=== PATIENT | female | born 1935 | race Caucasian/White ===

== ENCOUNTER 2017-05-28 17:42 | Inpatient (IN) | payer OTHER, MEDICARE ==
[~2017-05-28] VITALS: Ht 157.5 cm; Wt 51.5 kg
[2017-05-28] VITALS (16 sets, daily range): BP systolic 81–128; BP diastolic 55–82; PULSE 79–167; RESP 15–20; TEMP 98.8–100.4; O2SAT 97–100
[~2017-05-28 17:42] MED LIST: ATEN1TAB73 PO; BUFF325T PO; DIPH1TAB36 PO; ESTROGENS METHYLTEST PO; LORA-392 PO; PRAV10 PO; PRIS50TA PO; RISP0.5T2 PO; TAB-TAB PO
[2017-05-28] MEDS ORDERED: SODIUM CHLOR 0.9% 1000 ML INJ 1,000 ML IV ONE ×2 (18:00→19:00)
[2017-05-28] MEDS ORDERED: ACETAMINOPHEN 325 MG TAB PO ONE (18:00)
--- NOTE | 2017-05-28 18:36 | PD ---
HPI Chief Complaint: Altered Mental Status Time Seen by Provider: 17:49 Travel History International Travel<30 days: No Contact w/Intl Traveler<30days: No Traveled to known affect area: No History of Present Illness HPI Is an 82-year-old woman who presents to the emergency department brought in from [facility] in [place] for acute altered mental status. EMS reports the patient went down for a nap after lunch. She woke up she was overly confused, with nonsensical speech, with a heart rate in the 190s. Therefore that she was in A. fib which initially they reported was new for her however speaking with the son is sounds like this is been there since February. She received diltiazem with fire prior to EMS arrival [facility] arrival. Heart rate came down to 170s. She was found to have a fever of 101.3. [facility] gave her IV fluids, with some further improvement in her heart rate. There is facility reported that she otherwise had been feeling generally well prior to lunch time. History Past Medical History Narrative Medical Hyperlipidemia Depression Hypertension Stroke Right hip replacement Muscle weakness Urinary frequency Dyspepsia Osteoarthritis Menopausal: Yes : 2 Para: 2 Social History Alcohol Use: Yes (OCCAS.) Tobacco Use: Yes (QUIT LONG AGO) Allergies-Medications (Allergen,Severity, Reaction): Coded Allergies: diatrizoate meglumine (Unverified Allergy, Severe, Anaphylaxis, 05/10/17) States that she had the result while having a test completed on her kidneys. Was given Epi because throat became swollen. gadobenic acid (Unverified Allergy, Severe, Anaphylaxis, 05/10/17) States that she had the result while having a test completed on her kidneys. Was given Epi because throat became swollen. gadodiamide (Unverified Allergy, Severe, Anaphylaxis, 05/10/17) States that she had the result while having a test completed on her kidneys. Was given Epi because throat became swollen. gadoteridol (Unverified Allergy, Severe, Anaphylaxis, 05/10/17) States that she had the result while having a test completed on her kidneys. Was given Epi because throat became swollen. iodixanol (Unverified Allergy, Severe, Anaphylaxis, 05/10/17) States that she had the result while having a test completed on her kidneys. Was given Epi because throat became swollen. iohexol (Unverified Allergy, Severe, Anaphylaxis, 05/10/17) States that she had the result while having a test completed on her kidneys. Was given Epi because throat became swollen. Reported Meds & Prescriptions Reported Meds & Active Scripts Active Reported Bufferin (Aspirin Buffered) 325 Mg Tab 325 Mg PO EVERY OTHER DAY Multivitamin (Multivitamins) 1 Tab Tab 1 Tab PO DAILY Pristiq (Desvenlafaxine Succinate) 50 Mg Mihcelle 50 Mg PO DAILY Tylenol Pm (Acetaminophen/Diphenhydramine HCl) Tab 2 Tab PO HS Pravachol (Pravastatin Sodium) 10 Mg Tab 10 Mg PO HS Risperdal (Risperidone) 0.5 Mg Tab 0.5 Mg PO BID 07/28 tab at hs Ativan (Lorazepam) 0.5 Mg Tab 0.5 Mg PO TID [estrogens methyltest] 0.625 Mg PO QOD Tenormin (Atenolol) 25 Mg Tab 25 Mg PO DAILY Review of Systems Except as stated in HPI: all other systems reviewed are Neg Physical Exam Narrative GENERAL: Elderly 82-year-old woman pleasant, little bit confused. SKIN: Focused skin assessment warm/dry. HEAD: Atraumatic. Normocephalic. EYES: Pupils equal and round. No scleral icterus. No injection or drainage. ENT: No nasal bleeding or discharge. Mucous membranes pink and moist. NECK: Trachea midline. No JVD. CARDIOVASCULAR: Regular rate and rhythm. No murmur appreciated. RESPIRATORY: No accessory muscle use. Clear to auscultation. Breath sounds equal bilaterally. GASTROINTESTINAL: Abdomen soft, non-tender, nondistended. Hepatic and splenic margins not palpable. MUSCULOSKELETAL: No obvious deformities. No edema. NEUROLOGICAL: Awake and alert. Minimal confusion, able to read my name badge and carry on a normal conversation. No obvious cranial nerve deficits. Motor grossly within normal limits. Normal speech. Data Data Last Documented VS Vital Signs Date Time Temp Pulse Resp B/P (MAP) Pulse Ox O2 Delivery O2 Flow Rate FiO2 05/28/17 17:59 100.4 167 20 126/81 (96) 100 Orders Orders Electrocardiogram (05/28/17 17:49) Complete Blood Count With Diff (05/28/17 17:49) Comprehensive Metabolic Panel (05/28/17 17:49) Lactic Acid Sepsis Protocol (05/28/17 17:49) Magnesium (Mg) (05/28/17 17:49) Lipase (05/28/17 17:49) Troponin I (05/28/17 17:49) Urinalysis - C+S If Indicated (05/28/17 17:49) Influenzae A/B Antigen (05/28/17 17:49) Blood Culture (05/28/17 17:49) Chest, Single Ap (05/28/17 17:49) Blood Glucose (05/28/17 17:49) Ecg Monitoring (05/28/17 17:49) Iv Access Insert/Monitor (05/28/17 17:49) Oximetry (05/28/17 17:49) Oxygen Administration (05/28/17 17:49) Acetaminophen (Tylenol) (05/28/17 18:00) Sodium Chlor 0.9% 1000 Ml Inj (Ns 1000 M (05/28/17 18:00) MDM Medical Decision Making Medical Screen Exam Complete: Yes Emergency Medical Condition: Yes Differential Diagnosis Sepsis, A. fib RVR, infection, arrhythmia, dehydration, other Narrative Course Medical decision making INITIAL: Is an 82 year-old man presents to the emergency department with confusion, tachycardia, and fever. Suspect UTI. We'll check labs, urine, IV fluids. She received a liter 2 L with EMS also. Clarence Harper MD May 28, 2017 18:36
[2017-05-28 18:42] LABS: AUTOMATED NEUTROPHIL # 8.6 TH/MM3 (1.8-7.7); BASOPHIL % 0.3 % (0.0-2.0); EOSINOPHIL # 0.1 TH/MM3 (0-0.4); EOSINOPHIL % 0.5 % (0.0-4.0); HEMATOCRIT 34.7 % (35.0-46.0); HEMO FLAGS DIFF FINAL; LYMPH % 8.7 % (9.0-44.0); MEAN CELL VOLUME 85.9 FL (80.0-100.0); MEAN CORPUSCULAR HEMOGLOBIN 27.9 PG (27.0-34.0); MEAN CORPUSCULAR HGB CONC 32.5 % (32.0-36.0); MONO % 12.8 % (0.0-8.0); NEUT % 77.7 % (16.0-70.0); PLATELET COUNT 284 TH/MM3 (150-450); RED BLOOD COUNT 4.04 MIL/MM3 (4.00-5.30); WHITE BLOOD COUNT 11.1 TH/MM3 (4.0-11.0)
[2017-05-28 18:52] LABS: BLOOD, URINE NEG (NEG); GLUCOSE,URINE NEG (NEG); KETONE, URINE NEG (NEG); NITRITE,URINE NEG (NEG); URINE COLOR LIGHT-YELLOW (YELLW/STRAW)
[2017-05-28 18:54] LABS: COMMENT (UR) CATH-CULT NOT IND; CULTURE IF INDICATED CATH CULTURE NOT IND
[2017-05-28 18:57] LABS: ANION GAP 9 MEQ/L (5-15); AST (GOT) 17 U/L (15-37); BICARBONATE 22.7 MEQ/L (21.0-32.0); BLOOD UREA NITROGEN 13 MG/DL (7-18); CHLORIDE 104 MEQ/L (98-107); GLOMERULAR FILTRATION RATE 121 ML/MIN (>89); MAGNESIUM 1.7 MG/DL (1.5-2.5); POTASSIUM 3.5 MEQ/L (3.5-5.1); SODIUM (NA) 136 MEQ/L (136-145)
[2017-05-28 18:58] LABS: ALT (GPT) 16 U/L (10-53)
[2017-05-28] MEDS ORDERED: DILTIAZEM INJ 125 MG in SODIUM CHLORIDE 0.9% INJ 100 ML IV PRN (19:00)
[2017-05-28] MEDS ORDERED: DILTIAZEM HCL 25 MG/5 ML VIAL IV PUSH ONE (19:00)
--- NOTE | 2017-05-28 19:01 | RADRPT ---
EXAM DATE/TIME: 05/28/2017 18:24 [facility] COMPARISON: No previous studies available for comparison. INDICATIONS : Fever. MEDICAL HISTORY : Hypercholesterolemia. Hypertension SURGICAL HISTORY : Hysterectomy. ENCOUNTER: Initial ACUITY: 1 day PAIN SCORE: Non-responsive. LOCATION: Bilateral chest FINDINGS: Minimal parenchymal changes are present in the left base. The right lung is clear. The heart and pul monary vascularity are normal. The portion of the bony skeleton visualized is unremarkable. CONCLUSION: Minimal parenchymal changes left base. Johnnie Cazares MD FACR on May 28, 2017 at 18:59 Board Certified Radiologist. This report was verified electronically.
[2017-05-28 19:02] LABS: ALKALINE PHOSPHATASE 76 U/L (45-117); TOTAL BILIRUBIN ADULT 0.4 MG/DL (0.2-1.0)
[2017-05-28] MEDS ORDERED: VANCOMYCIN INJ 1,000 MG in SODIUM CHLOR 0.9% 250 ML INJ 250 ML IV ONE (19:15)
[2017-05-28] MEDS ORDERED: CEFEPIME INJ 2,000 MG in SODIUM CHLORIDE 0.9% INJ 100 ML IV ONE (19:15)
[2017-05-28] MEDS ORDERED: MILKSUS PO (19:17)
[2017-05-28] MEDS ORDERED: PRIL20TA2 PO (19:17)
[2017-05-28] MEDS ORDERED: ASPI1TAB91 PO (19:17)
[2017-05-28] MEDS ORDERED: ALPR.25 PO (19:17)
[2017-05-28] MEDS ORDERED: MIRA3350 PO (19:17)
[2017-05-28] MEDS ORDERED: PERI8.6T PO (19:17)
[2017-05-28] MEDS ORDERED: METO25TA3 PO (19:17)
[2017-05-28] MEDS ORDERED: VITA100036 PO (19:17)
[2017-05-28] MEDS ORDERED: META48.53 PO (19:17)
[2017-05-28] MEDS ORDERED: OMEG10005 PO (19:17)
[2017-05-28] MEDS ORDERED: ACET25TA2 PO (19:17)
[2017-05-28] MEDS ORDERED: OXYB5TAB10 PO (19:17)
[2017-05-28] MEDS ORDERED: TYLE325T PO (19:17)
[2017-05-28] MEDS ORDERED: PRAV20TA PO (19:17)
--- NOTE | 2017-05-28 19:24 | PD ---
Physical Exam Date Seen by Provider: May 28, 2017 Time Seen by Provider: 19:23 Narrative Accepted in transfer of care from Dr. Harper GENERAL: Pleasant elderly female in no acute distress no respiratory distress SKIN: Warm and dry. HEAD: Normocephalic. EYES: No scleral icterus. No injection or drainage. NECK: Supple, trachea midline. No JVD or lymphadenopathy. CARDIOVASCULAR: Increased irregular rate and rhythm without murmurs, gallops, or rubs. RESPIRATORY: Breath sounds equal bilaterally. No accessory muscle use. GASTROINTESTINAL: Abdomen soft, non-tender, nondistended. MUSCULOSKELETAL: No cyanosis, or edema. BACK: Nontender without obvious deformity. No CVA tenderness. Data Data Last Documented VS Vital Signs Date Time Temp Pulse Resp B/P (MAP) Pulse Ox O2 Delivery O2 Flow Rate FiO2 05/28/17 18:37 100.4 160 20 98 Nasal Cannula 2.00 Orders Orders Electrocardiogram (05/28/17 17:49) Complete Blood Count With Diff (05/28/17 17:49) Comprehensive Metabolic Panel (05/28/17 17:49) Lactic Acid Sepsis Protocol (05/28/17 17:49) Magnesium (Mg) (05/28/17 17:49) Lipase (05/28/17 17:49) Troponin I (05/28/17 17:49) Urinalysis - C+S If Indicated (05/28/17 17:49) Influenzae A/B Antigen (05/28/17 17:49) Blood Culture (05/28/17 17:49) Chest, Single Ap (05/28/17 17:49) Blood Glucose (05/28/17 17:49) Ecg Monitoring (05/28/17 17:49) Iv Access Insert/Monitor (05/28/17 17:49) Oximetry (05/28/17 17:49) Oxygen Administration (05/28/17 17:49) Acetaminophen (Tylenol) (05/28/17 18:00) Sodium Chlor 0.9% 1000 Ml Inj (Ns 1000 M (05/28/17 18:00) Urinary Catheter Insert/Apply (05/28/17 19:00) Vital Signs (Adult) [id number],Q4H (05/28/17 19:00) Registered Account Administrator / Telemetry YASMEEN.Q8H (05/28/17 19:00) Cardiac Rhythm YASMEEN.Q8H (05/28/17 19:00) Notify Dr: Other (05/28/17 19:00) Diltiazem Inj (Cardizem Inj) (05/28/17 19:00) Diltiazem Inj (Cardizem Inj) (05/28/17 19:00) Sodium Chlor 0.9% 1000 Ml Inj (Ns 1000 M (05/28/17 19:00) Ct Brain W/O Iv Contrast(Rout) (05/28/17 ) Cefepime Inj (Maxipime Inj) (05/28/17 19:15) Vancomycin Inj (Vancomycin Inj) (05/28/17 19:15) Admit Order (Ed Use Only) (05/28/17 ) ^ Saline Lock (05/28/17 19:48) Resp Oxygen Jay C Titrat 1-4 L (05/28/17 ) Notify Dr: Other (05/28/17 19:48) Sodium Chloride 0.9% Flush (Ns Flush) (05/28/17 21:00) Sodium Chloride 0.9% Flush (Ns Flush) (05/28/17 20:00) Consult Cardiology (05/28/17 ) Aspirin Chew (Aspirin Chew) (05/28/17 20:00) Labs Laboratory Tests Test 05/28/17 18:08 05/28/17 18:30 White Blood Count 11.1 TH/MM3 Red Blood Count 4.04 MIL/MM3 Hemoglobin 11.3 GM/DL Hematocrit 34.7 % Mean Corpuscular Volume 85.9 FL Mean Corpuscular Hemoglobin 27.9 PG Mean Corpuscular Hemoglobin Concent 32.5 % Red Cell Distribution Width 15.0 % Platelet Count 284 TH/MM3 Mean Platelet Volume 7.7 FL Neutrophils (%) (Auto) 77.7 % Lymphocytes (%) (Auto) 8.7 % Monocytes (%) (Auto) 12.8 % Eosinophils (%) (Auto) 0.5 % Basophils (%) (Auto) 0.3 % Neutrophils # (Auto) 8.6 TH/MM3 Lymphocytes # (Auto) 1.0 TH/MM3 Monocytes # (Auto) 1.4 TH/MM3 Eosinophils # (Auto) 0.1 TH/MM3 Basophils # (Auto) 0.0 TH/MM3 CBC Comment DIFF FINAL Differential Comment Blood Urea Nitrogen 13 MG/DL Creatinine 0.49 MG/DL Random Glucose 98 MG/DL Total Protein 6.4 GM/DL Albumin 2.7 GM/DL Calcium Level 7.6 MG/DL Magnesium Level 1.7 MG/DL Alkaline Phosphatase 76 U/L Aspartate Amino Transf (AST/SGOT) 17 U/L Alanine Aminotransferase (ALT/SGPT) 16 U/L Total Bilirubin 0.4 MG/DL Sodium Level 136 MEQ/L Potassium Level 3.5 MEQ/L Chloride Level 104 MEQ/L Carbon Dioxide Level 22.7 MEQ/L Anion Gap 9 MEQ/L Estimat Glomerular Filtration Rate 121 ML/MIN Lactic Acid Level 1.7 mmol/L Troponin I 0.19 NG/ML Lipase 78 U/L Urine Color LIGHT-YELLOW Urine Turbidity CLEAR Urine pH 7.0 Urine Specific Lovell 1.006 Urine Protein NEG mg/dL Urine Glucose (UA) NEG mg/dL Urine Ketones NEG mg/dL Urine Occult Blood NEG Urine Nitrite NEG Urine Bilirubin NEG Urine Urobilinogen LESS THAN 2.0 MG/DL Urine Leukocyte Esterase NEG Urine RBC 1 /hpf Urine WBC LESS THAN 1 /hpf Microscopic Urinalysis Comment CATH-CULT NOT IND MDM Medical Record Reviewed: Yes Supervised Visit with NENITA: No Interpretation(s) Troponin I: 0.19, elevated Lactic acid: 1.7, not elevated Last Impressions Chest X-Ray 05/28/17 1749 Signed Impressions: Service Date/Time: Sunday, May 28, 2017 18:24 - CONCLUSION: Minimal parenchymal changes left base. Johnnie Cazares MD FACR Head CT 05/28/17 0000 Signed Impressions: Service Date/Time: Sunday, May 28, 2017 19:18 - CONCLUSION: Negative noncontrast CT Sharan Fiore MD CBC & BMP Diagram 05/28/17 18:08 Total Protein 6.4, Albumin 2.7 L, Calcium Level 7.6 L, Magnesium Level 1.7, Alkaline Phosphatase 76, Aspartate Amino Transf (AST/SGOT) 17, Alanine Aminotransferase (ALT/SGPT) 16, Total Bilirubin 0.4 Vital Signs Date Time Temp Pulse Resp B/P (MAP) Pulse Ox O2 Delivery O2 Flow Rate FiO2 05/28/17 18:37 100.4 160 20 98 Nasal Cannula 2.00 05/28/17 18:37 100.4 166 20 126/81 (96) 97 Room Air 05/28/17 18:37 100 Nasal Cannula 2.00 05/28/17 17:59 100.4 167 20 126/81 (96) 100 EKG: Atrial fibrillation with rapid ventricular rate heart rate [address] elevation or injury pattern change Differential Diagnosis Accepted in transfer of care from Dr. Harper; please refer to his dictation Narrative Course Accepted in transfer of care from Dr. Harper; for follow-up of pending CT and patient disposition with plan for admission CT brain noncontrast reveals no acute abnormality Patient has received Cardizem en route to the hospital as well as Cardizem in the emergency department with improvement of rate control patient has been started on Cardizem infusion and received presumptive IV antibiotic coverage for possible sepsis call placed to animal nutrition teacher managing physicians [facility] covering for primary care provider Dr. Jacobo Prescott Sepsis Criteria SIRS Criteria (2 or more): Temp > 100.9 or < 96.8, Heart rate over 90 Physician Communication Physician Communication discussed with and while her request patient be admitted to [facility] for ongoing Cardizem infusion will obtain serial cardiac enzymes managed for sepsis and place cardiology consult in a.m. for covering physician--on-call is Dr. Storm Clark requested a consult for Dr. Inman in a.m. Diagnosis Primary Impression: Altered mental status, unspecified Qualified Codes: R41.0 - Disorientation, unspecified Additional Impressions: Atrial fibrillation with RVR Elevated troponin I level SIRS (systemic inflammatory response syndrome) Admitting Information Admitting Physician Requests: Admit Kerrie Petty MD May 28, 2017 19:24
--- NOTE | 2017-05-28 19:29 | RADRPT ---
EXAM DATE/TIME: 05/28/2017 19:18 [facility] COMPARISON: No previous studies available for comparison. INDICATIONS : Altered mental status and fever. RADIATION DOSE: 35.79 CTDIvol (mGy) MEDICAL HISTORY : Hypertension. SURGICAL HISTORY : Hysterectomy. Inguinal hernia repair. bladder tuck ENCOUNTER: Initial ACUITY: 1 day PAIN SCALE: 0/10 LOCATION: cranial TECHNIQUE: Multiple contiguous axial images were obtained of the head. Using automated exposure control and adj ustment of the mA and/or kV according to patient size, radiation dose was kept as low as reasonably a chievable to obtain optimal diagnostic quality images. DICOM format image data is available electro nically for review and comparison. FINDINGS: CEREBRUM: The ventricles are normal for age. No evidence of midline shift, mass lesion, hemorrhage or acute in farction. No extra-axial fluid collections are seen. POSTERIOR FOSSA: The cerebellum and brainstem are intact. The 4th ventricle is midline. The cerebellopontine angle i s unremarkable. EXTRACRANIAL: The visualized portion of the orbits is intact. SKULL: The calvaria is intact. No evidence of skull fracture. CONCLUSION: Negative noncontrast CT Sharan Fiore MD on May 28, 2017 at 19:27 Board Certified Radiologist. This report was verified electronically.
[2017-05-28] MEDS ORDERED: SODIUM CHLORIDE 0.9% FLUSH 10 ML FLUSH IVF PRN (20:00)
[2017-05-28] MEDS ORDERED: ASPIRIN 81 MG CHEW TAB CHEW ONE (20:00)
[2017-05-28] MEDS ORDERED: MAGNESIUM HYDROXIDE SUSP 30 ML CUP PO PRN (20:30)
[2017-05-28] MEDS: METOPROLOL TARTRATE 25 MG TAB PO SCH (21:00)
[2017-05-28] MEDS: ALPRAZolam 0.25 MG TAB PO SCH (21:00)
[2017-05-28] MEDS: SODIUM CHLORIDE 0.9% FLUSH 10 ML FLUSH IV FLUSH SCH (21:00)
[2017-05-28] MEDS ORDERED: ENOXAPARIN SODIUM 60 MG/0.6 ML SYRINGE SQ SCH (21:00)
[2017-05-28] MEDS ORDERED: PSYLLIUM FIBER SF/GF 6 GM POWD PKT PO PRN (21:00)
[2017-05-28] MEDS: OXYBUTYNIN CHLORIDE 5 MG TAB PO SCH (21:00)
[2017-05-28] MEDS ORDERED: DILTIAZEM HCL 25 MG/5 ML VIAL IV ONE (21:15)
[2017-05-28] MEDS: SODIUM CHLOR 0.9% 1000 ML INJ 1,000 ML IV SCH (23:00)
[2017-05-29] VITALS (26 sets, daily range): BP systolic 93–136; BP diastolic 54–96; PULSE 64–108; RESP 16–20; TEMP 97.5–98.7; O2SAT 97–100
[2017-05-29] MEDS: CEFEPIME INJ 1,000 MG in SODIUM CHLORIDE 0.9% INJ 100 ML IV SCH ×3 (03:41→18:29)
[2017-05-29] MEDS: SODIUM CHLOR 0.9% 1000 ML INJ 1,000 ML IV SCH (05:10)
--- NOTE | 2017-05-29 08:44 | HHI.HP ---
HPI Service [facility] Primary Care Physician Jacobo Prescott M.D. Admission Diagnosis AMS; sepsis; elevated troponin I; afrvr Diagnoses: Chief Complaint: CONFUSED Travel History International Travel<30 Days: No Contact w/Intl Traveler <30 Da: No Traveled to Known Affected Are: No History of Present Illness This a pleasant 82-year-old elderly white female from a local assisted living facility, significant past medical history of atrial fibrillation, hyperlipidemia, depression, hypertension, CVA. Patient was pretty and from [facility] for altered mental status. Apparently the patient went down for nap and after she woke up she was noted confused with nonsensical speech. Heart rate was noted in the 190s. She was found with a fever 101.3. EVAC gave her fluids and One-time dose of Cardizem. Her heart rate came down to 170s. Patient's baseline is usually alert and oriented 3 with occasional forgetfulness. She is typically ambulatory and can take care of her own needs. During emergency room evaluation, laboratory workup was completed. CBC remarkable for mild leukocytosis, WBC 11.1. BMP unremarkable. Lactic acid 1.7. Troponin 0.19. Urinalysis did not reveal any infection. Chest x-ray with minimal parenchymal changes to the left base. CT of the head negative. Blood cultures were obtained and patient was fluid resuscitated and started on antibiotics. She has been started on a Cardizem drip. At this time, her heart rate is 80 sinus rhythm. Patient is awake alert she knows she is in the hospital but doesn't fully understand why she was brought in indicates that prior to this she was doing well. She denies any chest pain, no shortness of breath, no palpitations. She was to get up and ambulate. I was able to speak on the phone with the patient's daughter in [place] as well as a local friend who is in charge of taking her to her medical appointments. Patient was recently admitted to [facility] on March 04, 2017 after a fall, she was noted to be in A. fib with RVR. She was also found positive for UTI and had elevated troponin consistent with non-STEMI. She was evaluated by Dr. Willian Benitez who did a STT that was negative. Echo was done showing EF of 55% with normal left ventricular function. She was started on Lopressor. At that time she was recommended to start on Xarelto as she had a HANH score 4. When she followed up with Dr. Benitez he stopped the Xarelto and put her back on baby aspirin. Her friend endorses that she found out that the patient fell on Tuesday but the patient was not taken to the hospital. She has not noticed any recent fever or chills. At this time, patient is stable, heart rate is in the 80s. Blood pressure in the 100s over 50s. She has no complaints. Patient is admitted for further evaluation and treatment. Review of Systems ROS Limitations: Altered Mental Status, Poor Historian (12 point review of systems difficult to complete, denies fever, no chills. Apparently had a fall) Other 12 point review of systems attempted with the patient, however she has no recollection of why she was brought in the hospital other than she was told that her heart rate was elevated. She denies any recent fever or chills. Had a recent fall but does not have any pain anywhere. Past Family Social History Past Medical History Hypertension Newly diagnosed with A. fib February 2017 Non-STEMI February 2017, had stress test that was negative Hyperlipidemia Bladder tuck Hyperlipidemia Prior stroke Past Surgical History Bladder tuck Hip replacement Inguinal hernia surgery Hysterectomy Tonsillectomy Colonoscopy and EGD Reported Medications Reported Meds & Active Scripts Active Reported Vitamin D3 (Cholecalciferol) 1,000 Unit Cap 1,000 Units PO DAILY Lillie-Colace (Sennosides-Docusate Sodium) 8.6-50 Mg Tab 1 Tab PO DAILY Pravachol (Pravastatin) 20 Mg Tab 20 Mg PO DAILY Miralax Powder (Polyethylene Glycol 3350 Powder) 17 Gm Powd 17 Gm PO DAILY PRN Mix and dissolve one measuring capful (17 grams) in 4oz. liquid of choice Ditropan (Oxybutynin Chloride) 5 Mg Tab 5 Mg PO BID Prilosec (Omeprazole Magnesium) 20 Mg Tab 20 Mg PO DAILY Lester-3 Fish Oil 1000 mg (Lester-3 Fatty Acids) 300 Mg-1,000 Mg Cap 1 Cap PO DAILY Milk of Magnesia Liq (Magnesium Hydroxide) 400 Mg/5 Ml Susp 30 Ml PO DAILY PRN Metoprolol Tartrate 25 Mg Tab 25 Mg PO BID Metamucil Original Texture (Psyllium Hydrophilic Mucilloid) 3.4 Gram/7 Gram Pow 1 Scoop PO DAILY PRN Dissolve 1 scoopful in 8oz of water Acetaminophen Pm Caplet (Acetaminophen/Diphenhydramine) 500 Mg-25 Mg Tablet 1 Caplet PO HS Tylenol (Acetaminophen) 325 Mg Tab 325 Mg PO Q4H PRN Aspirin Adult Low Strength (Aspirin) 81 Mg Tabdr 81 Mg PO DAILY Xanax (Alprazolam) 0.25 Mg Tab 0.25 Mg PO BID Allergies: Coded Allergies: diatrizoate meglumine (Unverified Allergy, Severe, Anaphylaxis, 05/28/17) States that she had the result while having a test completed on her kidneys. Was given Epi because throat became swollen. gadobenic acid (Unverified Allergy, Severe, Anaphylaxis, 05/28/17) States that she had the result while having a test completed on her kidneys. Was given Epi because throat became swollen. gadodiamide (Unverified Allergy, Severe, Anaphylaxis, 05/28/17) States that she had the result while having a test completed on her kidneys. Was given Epi because throat became swollen. gadoteridol (Unverified Allergy, Severe, Anaphylaxis, 05/28/17) States that she had the result while having a test completed on her kidneys. Was given Epi because throat became swollen. iodixanol (Unverified Allergy, Severe, Anaphylaxis, 05/28/17) States that she had the result while having a test completed on her kidneys. Was given Epi because throat became swollen. iohexol (Unverified Allergy, Severe, Anaphylaxis, 05/28/17) States that she had the result while having a test completed on her kidneys. Was given Epi because throat became swollen. Active Ordered Medications Inpatient Medications Acetaminophen (Tylenol) 325 mg Q4H PRN PO PAIN 1-10; Start 05/28/17 at 20:30 Alprazolam (Xanax) 0.25 mg BID PO ; Start 05/28/17 at 21:00 Aspirin (Aspirin Chew) 162 mg ONCE ONCE CHEW Last administered on 05/28/17 19: 56; Start 05/28/17 at 20:00; Stop 05/28/17 at 20:01; Status DC Aspirin (Ecotrin Ec) 81 mg DAILY PO ; Start 05/29/17 at 09:00 Cefepime HCl 1000 mg/Sodium Chloride 100 ml @ 200 mls/hr Q8H IV Last administered on 05/29/17 03:41; Start 05/29/17 at 03:00 Cefepime HCl 2000 mg/Sodium Chloride 100 ml @ 200 mls/hr ONCE ONCE IV Last administered on 05/28/17 21:21; Start 05/28/17 at 19:15; Stop 05/28/17 at 19:44; Status DC Diltiazem HCl (Cardizem Inj) 10 mg ONCE ONCE IV Last administered on 05/28/17 21:21; Start 05/28/17 at 21:15; Stop 05/28/17 at 21:16; Status DC Diltiazem HCl 125 mg/Sodium Chloride 125 ml @ 5 mls/hr TITRATE PRN IV Tachycardia Last administered on 05/28/17 22:00; Start 05/28/17 at 19:00 Enoxaparin Sodium (Lovenox Inj) 50 mg Q12HR SQ ; Start 05/28/17 at 21:00 Magnesium Hydroxide (Milk Of Magnesia Liq) 30 ml DAILY PRN PO CONSTIPATION; Start 05/28/17 at 20:30 Metoprolol Tartrate (Lopressor) 25 mg BID PO ; Start 05/28/17 at 21:00 Non-Formulary Medication 1 cap DAILY PO ; Start 05/29/17 at 09:00; Stop 05/29/17 at 09:00; Status DC Oxybutynin Chloride (Ditropan) 5 mg BID PO ; Start 05/28/17 at 21:00 Pantoprazole Sodium (Protonix) 40 mg DAILY PO ; Start 05/29/17 at 09:00 Pravastatin Sodium (Pravachol) 20 mg DAILY PO ; Start 05/29/17 at 09:00 Psyllium Hydrophilic Mucilloid (Metamucil Smooth Texture Sf/ Gf Pkt) 1 pkt DAILY PRN PO CONSTIPATION; Start 05/28/17 at 21:00 Senna/Docusate Sodium (Lillie-Colace) 1 tab DAILY PO ; Start 05/29/17 at 09:00 Sodium Chloride 1,000 ml @ 100 mls/hr Q10H IV Last administered on 05/28/17 23 :00; Start 05/28/17 at 20:45 Sodium Chloride (NS Flush) 2 ml UNSCH PRN IVF FLUSH AFTER USING IV ACCESS; Start 05/28/17 at 20:00 Vancomycin HCl 1000 mg/Sodium Chloride 250 ml @ 250 mls/hr ONCE ONCE IV Last administered on 05/28/17t 19:34; Start 05/28/17 at 19:15; Stop 05/28/17 at 20:14; Status DC Family History Reviewed, noncontributory Social History Patient is a , has lived at an assisted living facility for the last 3 years. She has 2 children who live out of state. She has a local friend by the name of Heather, phone #[phone] who takes on her medical appointments and assists her locally. Quit smoking many years ago Very rare alcohol use No substance abuse Uses a walker for ambulation Physical Exam Vital Signs Vital Signs Date Time Temp Pulse Resp B/P (MAP) Pulse Ox O2 Delivery O2 Flow Rate FiO2 05/29/17 05:06 75 05/29/17 04:00 64 05/29/17 03:51 97.5 75 93/54 (67) 100 05/29/17 03:00 73 05/29/17 02:00 78 05/29/17 02:00 78 05/29/17 00:15 86 15 104/57 (73) 98 Nasal Cannula 2.00 05/29/17 00:15 86 20 104/57 (73) 98 Nasal Cannula 2.00 05/29/17 00:00 80 16 104/55 (71) 98 Nasal Cannula 2.00 05/28/17 23:30 80 17 110/57 (74) 99 Nasal Cannula 2.00 05/28/17 23:00 79 18 105/58 (74) 99 Nasal Cannula 2.00 05/28/17 22:30 98.8 84 15 105/57 (73) 99 Nasal Cannula 2.00 05/28/17 22:10 87 18 105/69 (81) 99 Nasal Cannula 2.00 05/28/17 22:00 112 18 98/59 (72) 99 Nasal Cannula 2.00 05/28/17 22:00 112 98/59 05/28/17 21:41 127 20 81/56 (64) 98 2.00 05/28/17 21:35 103 20 92/62 (72) 98 Nasal Cannula 2.00 05/28/17 21:29 107 20 88/59 (69) 98 Nasal Cannula 2.00 05/28/17 21:05 121 20 110/60 (77) 99 Nasal Cannula 2.00 05/28/17 20:35 98.8 125 15 100/80 (87) 99 Nasal Cannula 2.00 05/28/17 20:35 98 Nasal Cannula 2.00 05/28/17 20:01 155 18 114/79 (91) 98 05/28/17 19:50 136 17 113/55 (74) 99 Nasal Cannula 2.00 05/28/17 19:40 124 19 112/63 (79) 99 Nasal Cannula 2.00 05/28/17 19:10 Nasal Cannula 05/28/17 19:05 158 18 128/82 (97) 100 Nasal Cannula 2.00 05/28/17 18:37 100.4 160 20 98 Nasal Cannula 2.00 05/28/17 18:37 100.4 166 20 126/81 (96) 97 Room Air 05/28/17 18:37 100 Nasal Cannula 2.00 05/28/17 17:59 100.4 167 20 126/81 (96) 100 Physical Exam GENERAL: This is a well-nourished, well-developed patient, in no apparent distress. SKIN: No rashes, ecchymoses or lesions. Cool and dry. HEAD: Atraumatic. Normocephalic. No temporal or scalp tenderness. EYES: Pupils equal round and reactive. Extraocular motions intact. No scleral icterus. No injection or drainage. ENT: Nose without bleeding, purulent drainage or septal hematoma. Throat without erythema, tonsillar hypertrophy or exudate. Uvula midline. Airway patent. NECK: Trachea midline. No JVD or lymphadenopathy. Supple, nontender, no meningeal signs. CARDIOVASCULAR: Regular rate and rhythm without murmurs, gallops, or rubs. RESPIRATORY: Clear to auscultation. Breath sounds equal bilaterally. No wheezes , rales, or rhonchi. GASTROINTESTINAL: Abdomen soft, non-tender, nondistended. No hepato-splenomegaly , or palpable masses. No guarding. MUSCULOSKELETAL: Extremities without clubbing, cyanosis, or edema. No joint tenderness, effusion, or edema noted. No calf tenderness. Negative Homans sign bilaterally. NEUROLOGICAL: Awake, alert oriented 2-3. No focal deficits, speech is clear. Very pleasant. No focal deficits. Poor historian. Laboratory Laboratory Tests Test 05/28/17 18:08 05/28/17 18:30 White Blood Count 11.1 Red Blood Count 4.04 Hemoglobin 11.3 Hematocrit 34.7 Mean Corpuscular Volume 85.9 Mean Corpuscular Hemoglobin 27.9 Mean Corpuscular Hemoglobin Concent 32.5 Red Cell Distribution Width 15.0 Platelet Count 284 Mean Platelet Volume 7.7 Neutrophils (%) (Auto) 77.7 Lymphocytes (%) (Auto) 8.7 Monocytes (%) (Auto) 12.8 Eosinophils (%) (Auto) 0.5 Basophils (%) (Auto) 0.3 Neutrophils # (Auto) 8.6 Lymphocytes # (Auto) 1.0 Monocytes # (Auto) 1.4 Eosinophils # (Auto) 0.1 Basophils # (Auto) 0.0 CBC Comment DIFF FINAL Differential Comment Blood Urea Nitrogen 13 Creatinine 0.49 Random Glucose 98 Total Protein 6.4 Albumin 2.7 Calcium Level 7.6 Magnesium Level 1.7 Alkaline Phosphatase 76 Aspartate Amino Transf (AST/SGOT) 17 Alanine Aminotransferase (ALT/SGPT) 16 Total Bilirubin 0.4 Sodium Level 136 Potassium Level 3.5 Chloride Level 104 Carbon Dioxide Level 22.7 Anion Gap 9 Estimat Glomerular Filtration Rate 121 Lactic Acid Level 1.7 Troponin I 0.19 Lipase 78 Urine Color LIGHT-YELLOW Urine Turbidity CLEAR Urine pH 7.0 Urine Specific [place] 1.006 Urine Protein NEG Urine Glucose (UA) NEG Urine Ketones NEG Urine Occult Blood NEG Urine Nitrite NEG Urine Bilirubin NEG Urine Urobilinogen LESS THAN 2.0 Urine Leukocyte Esterase NEG Urine RBC 1 Urine WBC LESS THAN 1 Microscopic Urinalysis Comment CATH-CULT NOT IND Date/Time Source Procedure Growth Status 05/28/17 18:08 Blood Peripheral Aerobic Blood Culture Pending Received 05/28/17 18:08 Blood Peripheral Anaerobic Blood Culture Pending Received Result Diagram: 05/28/17 1808 05/28/17 1808 Imaging Last Impressions Chest X-Ray 05/28/17 1749 Signed Impressions: Service Date/Time: Sunday, May 28, 2017 18:24 - CONCLUSION: Minimal parenchymal changes left base. Johnnie Cazares MD FACR Head CT 05/28/17 0000 Signed Impressions: Service Date/Time: Sunday, May 28, 2017 19:18 - CONCLUSION: Negative noncontrast CT Sharan Fiore MD Septic Shock Reassessment Heart: Regular rate and rhythm Lungs: Clear Skin: Warm, Dry Peripheral Pulses: Bounding Right Radial Bounding Left Radial Bounding Right Popliteal Bounding Left Popliteal Bounding Right Dorsalis Pedis Bounding Left Dorsalis Pedis Bounding Right Posterior Tibial Bounding Left Posterior Tibial Caprini VTE Risk Assessment Caprini VTE Risk Assessment: Mod/High Risk (score >= 2) Caprini Risk Assessment Model Point Value = 1 Point Value = 2 Point Value = 3 Point Value = 5 Age 41-60 Minor surgery BMI > 25 kg/m2 Swollen legs Varicose veins or History of unexplained or recurrent spontaneous Oral contraceptives or hormone replacement Sepsis (< 1 month) Serious lung disease, including pneumonia (< 1 month) Abnormal pulmonary function Acute myocardial infarction Congestive heart failure (< 1 month) History of inflammatory bowel disease Medical patient at bed rest Age 61-74 Arthroscopic surgery Major open surgery (> 45 min) Laparoscopic surgery (> 45 min) Malignancy Confined to bed (> 72 hours) Immobilizing plaster cast Central venous access Age >= 75 History of VTE Family history of VTE Factor V Leiden Prothrombin [id number] Lupus anticoagulant Anticardiolipin antibodies Elevated serum homocysteine Heparin-induced thrombocytopenia Other congenital or acquired thrombophilia Stroke (< 1 month) Elective arthroplasty Hip, pelvis, or leg fracture Acute spinal cord injury (< 1 month) Prophylaxis Regimen Total Risk Factor Score Risk Level Prophylaxis Regimen 0-1 Low Early ambulation 2 Moderate Order ONE of the following: *Sequential Compression Device (SCD) *Heparin 5000 units SQ BID 3-4 Higher Order ONE of the following medications: *Heparin 5000 units SQ TID *Enoxaparin/Lovenox 40 mg SQ daily (WT < 150 kg, CrCl > 30 mL/min) *Enoxaparin/Lovenox 30 mg SQ daily (WT < 150 kg, CrCl > 10-29 mL/min) *Enoxaparin/Lovenox 30 mg SQ BID (WT < 150 kg, CrCl > 30 mL/min) AND/OR *Sequential Compression Device (SCD) 5 or more Highest Order ONE of the following medications: *Heparin 5000 units SQ TID (Preferred with Epidurals) *Enoxaparin/Lovenox 40 mg SQ daily (WT < 150 kg, CrCl > 30 mL/min) *Enoxaparin/Lovenox 30 mg SQ daily (WT < 150 kg, CrCl > 10-29 mL/min) *Enoxaparin/Lovenox 30 mg SQ BID (WT < 150 kg, CrCl > 30 mL/min) AND *Sequential Compression Device (SCD) Assessment and Plan Problem List: (1) Altered mental status, unspecified ICD Codes: R41.82 - Altered mental status, unspecified Status: Acute (2) SIRS (systemic inflammatory response syndrome) ICD Codes: R65.10 - Systemic inflammatory response syndrome (SIRS) of non- infectious origin without acute organ dysfunction Status: Acute (3) Atrial fibrillation with RVR ICD Codes: I48.91 - Unspecified atrial fibrillation Status: Acute (4) Elevated troponin I level ICD Codes: R74.8 - Abnormal levels of other serum enzymes Status: Acute (5) Hyperlipidemia ICD Codes: E78.5 - Hyperlipidemia, unspecified Status: Chronic Assessment and Plan Admit to Dr. Clark 82-year-old elderly white female who was brought in from a local assisted- living facility with altered mental status, found febrile with A. fib with RVR. Febrile, tachycardia, SIRS, unclear source of infection. Possibly pulmonary, chest x-ray with minimal parenchymal changes to the left base. -Continue with antibiotics, follow cultures -Continue with IV fluids, decreased to 50 an hour -Monitor CBC, monitor for fever A. fib with RVR-now control, sinus rhythm. Elevated troponin, non-STEMI, secondary to elevated heart rate. Patient recently diagnosed in February 2017, currently on aspirin. -Continue with serial cardiac enzymes -Wean off Cardizem drip -Continue with Lopressor -Continue with aspirin -Defer to cardiology the need for any anticoagulation, patient was on Xarelto and then was changed to aspirin.HANH score of 4. Hyperlipidemia -Continue with statins Lovenox to 40 mg subcutaneous for DVT prophylaxis Protonix for GI prophylaxis PT evaluation Home medications reviewed, initiated as indicated Plan of care has been discussed with the patient and her family, attending and registered nurse. Further management of the patient will be dependent on the hospital course This patient was seen by myself and Dr. Clark, this H&P is written on his behalf Physician Certification 2 Midnight Certification Type: Admission for Inpatient Services Order for Inpatient Services The services are ordered in accordance with Medicare regulations or non- Medicare payer requirements, as applicable. In the case of services not specified as inpatient-only, they are appropriately provided as inpatient services in accordance with the 2-midnight benchmark. Estimated LOS (days): 2 2 days is the estimated time the patient will need to remain in the hospital, assuming treatment plan goals are met and no additional complications. Post-Hospital Plan: [facility] Problem Qualifiers (1) Altered mental status, unspecified: Qualified Codes: R41.0 - Disorientation, unspecified (2) Hyperlipidemia: Qualified Codes: E78.5 - Hyperlipidemia, unspecified Ritu Mahcuca May 29, 2017 08:44
[2017-05-29] MEDS ORDERED: FATTY ACIDS PO SCH (09:00)
[2017-05-29] MEDS ORDERED: OMEGA PO SCH (09:00)
--- NOTE | 2017-05-29 09:21 | EKG ---
Date Performed: 05/28/2017 Time Performed: 18:37:06 PTAGE: 82 years EKG: ATRIAL FIBRILLATION WITH RAPID VENTRICULAR RESPONSE BORDERLINE LEFT AXIS DEVIATION VOLTAGE CRITERIA FOR LVH NONSPECIFIC ST & T-WAVE ABNORMALITY ABNORMAL ECG NO PREVIOUS TRACING DOCTOR: Clarence Porras Interpretating Date/Time 05/29/2017 09:20:17
[2017-05-29] MEDS: ENOXAPARIN SODIUM 40 MG/0.4 ML SYRINGE SQ SCH (10:19)
[2017-05-29] MEDS: ASPIRIN EC 81 MG TABEC PO SCH (10:19)
[2017-05-29] MEDS: METOPROLOL TARTRATE 25 MG TAB PO SCH ×2 (10:20→20:23)
[2017-05-29] MEDS: PRAVASTATIN SOD 20 MG TAB PO SCH (10:20)
[2017-05-29] MEDS: SODIUM CHLORIDE 0.9% FLUSH 10 ML FLUSH IV FLUSH SCH ×2 (10:20→20:23)
[2017-05-29] MEDS: DOCUSATE SODIUM 50 MG/SENNA 8.6 MG TAB PO SCH (10:20)
[2017-05-29] MEDS: OXYBUTYNIN CHLORIDE 5 MG TAB PO SCH ×2 (10:20→20:23)
[2017-05-29] MEDS: ALPRAZolam 0.25 MG TAB PO SCH ×2 (10:20→20:23)
[2017-05-29] MEDS: PANTOPRAZOLE SOD 40 MG DELAYED RELEASE TAB PO SCH (10:20)
[2017-05-29] MEDS ORDERED: ATROPINE SULFATE 1 MG/10 ML SYRINGE ONE (12:49)
[2017-05-29] MEDS ORDERED: EPINEPHrine HCL (1:10,000) 1 MG/10 ML SYRINGE ONE (12:49)
--- NOTE | 2017-05-29 13:28 | PD.CONS ---
HPI Service Cardiology Physicians Consult Requested By Ritu Machuca Reason for Consult Afib RVR Primary Care Physician Jacobo Prescott M.D. History of Present Illness The patient is an 82 year old female known to Dr Benitez with a history of new onset atrial fibrillation 02/2017, CVA, HTN and recent NSTEMI 02/2017. She had a negative stress test 02/2017. CHADSVASC score 6 on the basis of gender, age , HTN, and CVA. She was recently taken off of Xarelto per Dr Benitez's recommendation. The patient was brought to the hospital from [facility] due to fever and atrial fibrillation with RVR. She is noted to have elevated WBC. Troponin 0.19. The was given cardizem bolus followed up by gtt. She is now in NSR. Cardizem gtt was stopped. She denies CP, palpitations or SOB. She had a recent fall and is pending xray of her arm. (Eloise Jay) Review of Systems Consitutional: DENIES: Fatigue, Fever, Chills, Weight gain, Weight loss Eyes: DENIES: Amaurosis Fugax, Change in vision HEENT: DENIES: Lightheadedness, Change in hearing Respiratory: DENIES: See HPI, Cough, Snoring, Shortness of breath, Wheezing, Sputum production Cardiovascular: COMPLAINS OF: Tachycardia, DENIES: See HPI, Chest pain, Palpitations, Syncope Gastrointestinal: DENIES: Nausea, Vomiting, Change in bowel habits, Reflux, Bloody stools, Melena Genitourinary: DENIES: Urinary incontinence, Difficulty voiding Integumentary: DENIES: Rash Neurologic: DENIES: Tingling or numbness, Memory problems, Poor Balance, Stroke symptoms Musculoskeletal: DENIES: Joint pain, Muscle pain, Limited range of motion, Back pain Psychiatric: DENIES: Anxiety, Depression, Sleep disturbances Hematologic: DENIES: Bruising tendencies, Bleeding tendencies Endocrine: DENIES: Weight gain, Weight loss, Thyroid disease (Eloise Jay ) Past Family Social History Allergies: Coded Allergies: diatrizoate meglumine (Unverified Allergy, Severe, Anaphylaxis, 05/28/17) States that she had the result while having a test completed on her kidneys. Was given Epi because throat became swollen. gadobenic acid (Unverified Allergy, Severe, Anaphylaxis, 05/28/17) States that she had the result while having a test completed on her kidneys. Was given Epi because throat became swollen. gadodiamide (Unverified Allergy, Severe, Anaphylaxis, 05/28/17) States that she had the result while having a test completed on her kidneys. Was given Epi because throat became swollen. gadoteridol (Unverified Allergy, Severe, Anaphylaxis, 05/28/17) States that she had the result while having a test completed on her kidneys. Was given Epi because throat became swollen. iodixanol (Unverified Allergy, Severe, Anaphylaxis, 05/28/17) States that she had the result while having a test completed on her kidneys. Was given Epi because throat became swollen. iohexol (Unverified Allergy, Severe, Anaphylaxis, 05/28/17) States that she had the result while having a test completed on her kidneys. Was given Epi because throat became swollen. Past Medical History atrial fibrillation CVA HTN HLD [place] NSTEMI with negative stress test 02/2017 Past Surgical History Bladder tuck Hip replacement Inguinal hernia surgery Hysterectomy Tonsillectomy Colonoscopy and EGD Reported Medications Reported Meds & Active Scripts Active Reported Vitamin D3 (Cholecalciferol) 1,000 Unit Cap 1,000 Units PO DAILY Lillie-Colace (Sennosides-Docusate Sodium) 8.6-50 Mg Tab 1 Tab PO DAILY Pravachol (Pravastatin) 20 Mg Tab 20 Mg PO DAILY Miralax Powder (Polyethylene Glycol 3350 Powder) 17 Gm Powd 17 Gm PO DAILY PRN Mix and dissolve one measuring capful (17 grams) in 4oz. liquid of choice Ditropan (Oxybutynin Chloride) 5 Mg Tab 5 Mg PO BID Prilosec (Omeprazole Magnesium) 20 Mg Tab 20 Mg PO DAILY [place]-3 Fish Oil 1000 mg ([place]-3 Fatty Acids) 300 Mg-1,000 Mg Cap 1 Cap PO DAILY Milk of Magnesia Liq (Magnesium Hydroxide) 400 Mg/5 Ml Susp 30 Ml PO DAILY PRN Metoprolol Tartrate 25 Mg Tab 25 Mg PO BID Metamucil Original Texture (Psyllium Hydrophilic Mucilloid) 3.4 Gram/7 Gram Pow 1 Scoop PO DAILY PRN Dissolve 1 scoopful in 8oz of water Acetaminophen Pm Caplet (Acetaminophen/Diphenhydramine) 500 Mg-25 Mg Tablet 1 Caplet PO HS Tylenol (Acetaminophen) 325 Mg Tab 325 Mg PO Q4H PRN Aspirin Adult Low Strength (Aspirin) 81 Mg Tabdr 81 Mg PO DAILY Xanax (Alprazolam) 0.25 Mg Tab 0.25 Mg PO BID Active Ordered Medications Current Medications Medications (Trade) Dose Ordered Sig/Frank Route Start Time Stop Time Status Last Admin Diltiazem HCl 125 mg/Sodium Chloride 125 ml @ 5 mls/hr TITRATE PRN IV 05/28/17 19:00 05/28/17 22:00 (NS Flush) 2 ml BID IV FLUSH 05/28/17 21:00 05/29/17 10:20 (NS Flush) 2 ml UNSCH PRN IVF 05/28/17 20:00 (Tylenol) 325 mg Q4H PRN PO 05/28/17 20:30 (Xanax) 0.25 mg BID PO 05/28/17 21:00 05/29/17 10:20 (Ecotrin Ec) 81 mg DAILY PO 05/29/17 09:00 05/29/17 10:19 (Milk Of Magnesia Liq) 30 ml DAILY PRN PO 05/28/17 20:30 (Lopressor) 25 mg BID PO 05/28/17 21:00 05/29/17 10:20 (Ditropan) 5 mg BID PO 05/28/17 21:00 05/29/17 10:20 (Pravachol) 20 mg DAILY PO 05/29/17 09:00 05/29/17 10:20 (Lillie-Colace) 1 tab DAILY PO 05/29/17 09:00 05/29/17 10:20 (Metamucil Smooth Texture Sf/ Gf Pkt) 1 pkt DAILY PRN PO 05/28/17 21:00 Cefepime HCl 1000 mg/Sodium Chloride 100 ml @ 200 mls/hr Q8H IV 05/29/17 03:00 05/29/17 10:19 (Protonix) 40 mg DAILY PO 05/29/17 09:00 05/29/17 10:20 Sodium Chloride 1,000 ml @ 50 mls/hr Q20H IV 05/28/17 20:45 05/28/17 23:00 (Lovenox Inj) 40 mg Q24H SQ 05/29/17 10:00 05/29/17 10:19 Family History non contributory Social History Lives at [facility]. (Eloise Jay) Physical Exam Vital Signs Vital Signs Date Time Temp Pulse Resp B/P (MAP) Pulse Ox O2 Delivery O2 Flow Rate FiO2 05/29/17 11:00 98.3 74 17 136/87 (103) 97 05/29/17 09:51 98 Nasal Cannula 2.00 05/29/17 07:15 98.3 84 16 125/73 (90) 100 05/29/17 05:06 75 05/29/17 04:00 64 05/29/17 03:51 97.5 75 93/54 (67) 100 05/29/17 03:00 73 05/29/17 02:00 78 05/29/17 02:00 78 05/29/17 00:15 86 15 104/57 (73) 98 Nasal Cannula 2.00 05/29/17 00:15 86 20 104/57 (73) 98 Nasal Cannula 2.00 05/29/17 00:00 80 16 104/55 (71) 98 Nasal Cannula 2.00 05/28/17 23:30 80 17 110/57 (74) 99 Nasal Cannula 2.00 05/28/17 23:00 79 18 105/58 (74) 99 Nasal Cannula 2.00 05/28/17 22:30 98.8 84 15 105/57 (73) 99 Nasal Cannula 2.00 05/28/17 22:10 87 18 105/69 (81) 99 Nasal Cannula 2.00 05/28/17 22:00 112 18 98/59 (72) 99 Nasal Cannula 2.00 05/28/17 22:00 112 98/59 05/28/17 21:41 127 20 81/56 (64) 98 2.00 05/28/17 21:35 103 20 92/62 (72) 98 Nasal Cannula 2.00 05/28/17 21:29 107 20 88/59 (69) 98 Nasal Cannula 2.00 05/28/17 21:05 121 20 110/60 (77) 99 Nasal Cannula 2.00 05/28/17 20:35 98.8 125 15 100/80 (87) 99 Nasal Cannula 2.00 05/28/17 20:35 98 Nasal Cannula 2.00 05/28/17 20:01 155 18 114/79 (91) 98 05/28/17 19:50 136 17 113/55 (74) 99 Nasal Cannula 2.00 05/28/17 19:40 124 19 112/63 (79) 99 Nasal Cannula 2.00 05/28/17 19:10 Nasal Cannula 05/28/17 19:05 158 18 128/82 (97) 100 Nasal Cannula 2.00 05/28/17 18:37 100.4 160 20 98 Nasal Cannula 2.00 05/28/17 18:37 100.4 166 20 126/81 (96) 97 Room Air 05/28/17 18:37 100 Nasal Cannula 2.00 05/28/17 17:59 100.4 167 20 126/81 (96) 100 Physical Exam GENERAL: Pleasant elderly female SKIN: Warm and dry. HEAD: Atraumatic. Normocephalic. EYES: Pupils equal and round. No scleral icterus. No injection or drainage. ENT: No nasal bleeding or discharge. Mucous membranes pink and moist. NECK: Trachea midline. CARDIOVASCULAR: Regular rate and rhythm. RESPIRATORY: No accessory muscle use. Clear to auscultation. Breath sounds equal bilaterally. GASTROINTESTINAL: Abdomen soft, non-tender, nondistended. MUSCULOSKELETAL: Extremities without clubbing, cyanosis, or edema. NEUROLOGICAL: Awake and alert. Normal speech. PSYCHIATRIC: Appropriate mood and affect; insight and judgment normal. Laboratory Laboratory Tests Test 05/28/17 18:08 05/28/17 18:30 White Blood Count 11.1 Red Blood Count 4.04 Hemoglobin 11.3 Hematocrit 34.7 Mean Corpuscular Volume 85.9 Mean Corpuscular Hemoglobin 27.9 Mean Corpuscular Hemoglobin Concent 32.5 Red Cell Distribution Width 15.0 Platelet Count 284 Mean Platelet Volume 7.7 Neutrophils (%) (Auto) 77.7 Lymphocytes (%) (Auto) 8.7 Monocytes (%) (Auto) 12.8 Eosinophils (%) (Auto) 0.5 Basophils (%) (Auto) 0.3 Neutrophils # (Auto) 8.6 Lymphocytes # (Auto) 1.0 Monocytes # (Auto) 1.4 Eosinophils # (Auto) 0.1 Basophils # (Auto) 0.0 CBC Comment DIFF FINAL Differential Comment Blood Urea Nitrogen 13 Creatinine 0.49 Random Glucose 98 Total Protein 6.4 Albumin 2.7 Calcium Level 7.6 Magnesium Level 1.7 Alkaline Phosphatase 76 Aspartate Amino Transf (AST/SGOT) 17 Alanine Aminotransferase (ALT/SGPT) 16 Total Bilirubin 0.4 Sodium Level 136 Potassium Level 3.5 Chloride Level 104 Carbon Dioxide Level 22.7 Anion Gap 9 Estimat Glomerular Filtration Rate 121 Lactic Acid Level 1.7 Troponin I 0.19 Lipase 78 Urine Color LIGHT-YELLOW Urine Turbidity CLEAR Urine pH 7.0 Urine Specific Lingle 1.006 Urine Protein NEG Urine Glucose (UA) NEG Urine Ketones NEG Urine Occult Blood NEG Urine Nitrite NEG Urine Bilirubin NEG Urine Urobilinogen LESS THAN 2.0 Urine Leukocyte Esterase NEG Urine RBC 1 Urine WBC LESS THAN 1 Microscopic Urinalysis Comment CATH-CULT NOT IND Date/Time Source Procedure Growth Status 05/28/17 18:08 Blood Peripheral Aerobic Blood Culture - Preliminary NO GROWTH IN 1 DAY Resulted 05/28/17 18:08 Blood Peripheral Anaerobic Blood Culture - Preliminary NO GROWTH IN 1 DAY Resulted (Eloise Jay) Result Diagram: 05/28/17 1808 05/28/17 1808 Imaging Last 72 hours Impressions Chest X-Ray 05/28/17 1749 Signed Impressions: Service Date/Time: Sunday, May 28, 2017 18:24 - CONCLUSION: Minimal parenchymal changes left base. Johnnie Cazares MD FACR Head CT 05/28/17 0000 Signed Impressions: Service Date/Time: Sunday, May 28, 2017 19:18 - CONCLUSION: Negative noncontrast CT Sharan Fiore MD (Eloise Jay) Assessment and Plan Assessment and Plan Atrial fibrillation with RVR exacerbated by SIRS. No identified source of infection. Xarelto discontinued by Dr. Benitez. She had a recent fall. Elevated troponin. Recent stress test 02/2017 HTN HLD Hx CVA PLAN: Continue current therapy. Will hold off on anticoagulation for now. Dr Benitez will follow up on Tuesday Follow up blood cultures. UA and CXR unremarkable Check TSH and Magnesium Obtain records from Patient seen and evaluated by Dr Tarango who completed face to face encounter, physical exam and participated in evaluation and management. (Eloise Jay) Assessment and Plan The exam, history, and the medical decision-making described in the above note were completed with the assistance of the mid-level provider. I reviewed and agree with the findings presented. I attest that I had a [id number] encounter with the patient on the same day, and personally performed and documented my assessment and findings in the medical record. Dr Swanson will follow with you. (Sathish Tarango MD) Eloise Jay May 29, 2017 13:28 Sathish Tarango MD May 29, 2017 14:39
--- NOTE | 2017-05-29 13:37 | RADRPT ---
EXAM DATE/TIME: 05/29/2017 13:20 [place] COMPARISON: No previous studies available for comparison. INDICATIONS : Fell bruising with swelling medial humerus. MEDICAL HISTORY : None. SURGICAL HISTORY : None. ENCOUNTER: Initial ACUITY: 4 - 6 days PAIN SCORE: 10/10 LOCATION: Right humerus FINDINGS: Two view examination of the right humerus demonstrates no evidence of fracture or dislocation. Bony mineralization is normal. The soft tissue structures are intact. There are degenerative changes abo ut the shoulder. CONCLUSION: Negative for fracture. Johnnie Cazares MD FACR on May 29, 2017 at 13:35 Board Certified Radiologist. This report was verified electronically.
[2017-05-29 14:24] LABS: HEMATOCRIT 30.7 % (35.0-46.0); MEAN CORPUSCULAR HEMOGLOBIN 27.3 PG (27.0-34.0); MEAN CORPUSCULAR HGB CONC 31.8 % (32.0-36.0); PLATELET COUNT 317 TH/MM3 (150-450); RED BLOOD COUNT 3.57 MIL/MM3 (4.00-5.30); RED CELL DISTRIBUTION WIDTH 14.6 % (11.6-17.2); REVIEW FLAG FINAL; WHITE BLOOD COUNT 10.2 TH/MM3 (4.0-11.0)
[2017-05-29 14:52] LABS: BICARBONATE 23.9 MEQ/L (21.0-32.0); MAGNESIUM 1.8 MG/DL (1.5-2.5); POTASSIUM 3.6 MEQ/L (3.5-5.1)
[2017-05-29 15:02] LABS: HDL CHOLESTEROL 55.1 MG/DL (40.0-60.0)
[2017-05-29] MEDS: ACETAMINOPHEN 325 MG TAB PO PRN (15:16)
[2017-05-30] VITALS (28 sets, daily range): BP systolic 94–175; BP diastolic 67–107; PULSE 78–108; RESP 16; TEMP 97.7–98.9; O2SAT 85–98
[2017-05-30] MEDS: SODIUM CHLOR 0.9% 1000 ML INJ 1,000 ML IV SCH (00:23)
[2017-05-30] MEDS ORDERED: cloNIDine HCL 0.1 MG TAB PO PRN (03:30)
[2017-05-30] MEDS: CEFEPIME INJ 1,000 MG in SODIUM CHLORIDE 0.9% INJ 100 ML IV SCH ×2 (03:50→20:10)
[2017-05-30] MEDS: ALPRAZolam 0.25 MG TAB PO SCH ×2 (09:40→20:10)
[2017-05-30] MEDS: SODIUM CHLORIDE 0.9% FLUSH 10 ML FLUSH IV FLUSH SCH ×2 (09:41→20:10)
[2017-05-30] MEDS: DOCUSATE SODIUM 50 MG/SENNA 8.6 MG TAB PO SCH (09:41)
[2017-05-30] MEDS: PRAVASTATIN SOD 20 MG TAB PO SCH (09:41)
[2017-05-30] MEDS: OXYBUTYNIN CHLORIDE 5 MG TAB PO SCH ×2 (09:41→20:10)
[2017-05-30] MEDS: ASPIRIN EC 81 MG TABEC PO SCH (09:41)
[2017-05-30] MEDS: METOPROLOL TARTRATE 50 MG TAB PO SCH ×2 (09:41→20:10)
[2017-05-30] MEDS: PANTOPRAZOLE SOD 40 MG DELAYED RELEASE TAB PO SCH (09:41)
[2017-05-30] MEDS: ENOXAPARIN SODIUM 40 MG/0.4 ML SYRINGE SQ SCH (09:42)
--- NOTE | 2017-05-30 12:05 | HHI.PR ---
Subjective Remarks awake, oriented x 2, forgetful at times no focal deficits dry cough no fever tele reviewed, occ episodes of atrial tach, currently SR 80s BP 100s Objective Objective Results - Vital Signs Date Time Temp Pulse Resp B/P (MAP) Pulse Ox O2 Delivery O2 Flow Rate FiO2 05/30/17 07:10 98.9 102 16 130/72 (91) 97 05/30/17 06:13 92 05/30/17 05:06 96 05/30/17 04:00 95 05/30/17 03:40 98.6 96 175/104 (127) 98 161/107 (125) 05/30/17 03:00 99 05/30/17 02:00 92 05/30/17 01:00 90 05/30/17 00:28 98.4 85 149/91 (110) 85 05/30/17 00:00 86 05/29/17 23:00 89 05/29/17 22:00 82 05/29/17 21:00 90 05/29/17 20:00 98.3 100 129/96 (107) 97 05/29/17 20:00 98 05/29/17 19:00 106 05/29/17 18:00 108 05/29/17 17:00 96 05/29/17 16:00 100 05/29/17 15:00 98.7 81 18 134/82 (99) 98 05/29/17 15:00 93 05/29/17 14:00 88 05/29/17 13:00 88 I/O 05/29/17 05/29/17 05/29/17 05/30/17 05/30/17 05/30/17 07:00 15:00 23:00 07:00 15:00 23:00 Intake Total 240 ml 100 ml 480 ml 840 ml Output Total 550 ml 700 ml 1950 ml Balance -310 ml 100 ml -220 ml -1110 ml Intake Oral 240 ml 480 ml 240 ml IV Total 100 ml 600 ml Output Urine Total 550 ml 700 ml 1950 ml # Bowel Movements 1 Result Diagram: 05/29/17 1413 05/29/17 1413 Imaging Last Impressions Chest X-Ray 05/28/17 5062 Signed Impressions: Service Date/Time: Sunday, May 28, 2017 18:24 - CONCLUSION: Minimal parenchymal changes left base. Johnnie Cazares MD FACR Head CT 05/28/17 0000 Signed Impressions: Service Date/Time: Sunday, May 28, 2017 19:18 - CONCLUSION: Negative noncontrast CT Sharan Fiore MD Other Results Laboratory Tests Test 05/29/17 14:13 White Blood Count 10.2 Red Blood Count 3.57 Hemoglobin 9.8 Hematocrit 30.7 Mean Corpuscular Volume 86.0 Mean Corpuscular Hemoglobin 27.3 Mean Corpuscular Hemoglobin Concent 31.8 Red Cell Distribution Width 14.6 Platelet Count 317 Mean Platelet Volume 6.9 Blood Urea Nitrogen 9 Creatinine 0.55 Random Glucose 126 Calcium Level 7.8 Magnesium Level 1.8 Sodium Level 136 Potassium Level 3.6 Chloride Level 106 Carbon Dioxide Level 23.9 Anion Gap 6 Estimat Glomerular Filtration Rate 106 Troponin I 0.10 Triglycerides Level 49 Cholesterol Level 129 LDL Cholesterol 64 HDL Cholesterol 55.1 Cholesterol/HDL Ratio 2.34 Thyroid Stimulating Hormone 3rd Gen 0.264 Date/Time Source Procedure Growth Status 05/28/17 18:08 Blood Peripheral Aerobic Blood Culture - Preliminary NO GROWTH IN 2 DAYS Resulted 05/28/17 18:08 Blood Peripheral Anaerobic Blood Culture - Preliminary NO GROWTH IN 2 DAYS Resulted ROS General: Other (12 point ros completed, unreliable ) HEENT: No: Sore Throat, Dysphagia Cardiac: No: Chest Pain, Edema, Palpitations Pulmonary: Cough GI: No: Abdominal Pain, BM, Diarrhea, N/V /[employer]: No: Dysuria, Urgency Neuro/MS: No: Lightheaded, Confusion Psych: No: Anxiety, Depression Skin: No: Itching, Rash Physical Exam Physical Exam GENERAL: This is a well-nourished, well-developed patient, in no apparent distress. SKIN: No rashes, ecchymoses or lesions. Cool and dry. HEAD: Atraumatic. Normocephalic. No temporal or scalp tenderness. EYES: Pupils equal round and reactive. Extraocular motions intact. No scleral icterus. No injection or drainage. ENT: Nose without bleeding, purulent drainage or septal hematoma. Throat without erythema, tonsillar hypertrophy or exudate. Uvula midline. Airway patent. NECK: Trachea midline. No JVD or lymphadenopathy. Supple, nontender, no meningeal signs. CARDIOVASCULAR: Regular rate and rhythm without murmurs, gallops, or rubs. RESPIRATORY: Clear to auscultation. Breath sounds equal bilaterally. No wheezes , rales, or rhonchi. GASTROINTESTINAL: Abdomen soft, non-tender, nondistended. No hepato-splenomegaly , or palpable masses. No guarding. MUSCULOSKELETAL: Extremities without clubbing, cyanosis, or edema. No joint tenderness, effusion, or edema noted. No calf tenderness. Negative Homans sign bilaterally. NEUROLOGICAL: Awake, alert oriented 2-3. No focal deficits, speech is clear. Very pleasant. No focal deficits. Poor historian. Urinary Catheter: Yes Assessment to: Remove Vascular Central Line Catheter: No A/P Diagnosis: (1) Altered mental status, unspecified ICD Codes: R41.82 - Altered mental status, unspecified Status: Acute (2) SIRS (systemic inflammatory response syndrome) ICD Codes: R65.10 - Systemic inflammatory response syndrome (SIRS) of non- infectious origin without acute organ dysfunction Status: Acute (3) Atrial fibrillation with RVR ICD Codes: I48.91 - Unspecified atrial fibrillation Status: Acute (4) Elevated troponin I level ICD Codes: R74.8 - Abnormal levels of other serum enzymes Status: Acute (5) Hyperlipidemia ICD Codes: E78.5 - Hyperlipidemia, unspecified Status: Chronic Assessment and Plan 82-year-old elderly white female who was brought in from a local assisted- living facility with altered mental status, found febrile with A. fib with RVR. Febrile, tachycardia, SIRS, unclear source of infection. Possibly pulmonary, chest x-ray with minimal parenchymal changes to the left base. -Continue with antibiotics, follow cultures-negative so far -dc IVF -Monitor CBC, monitor for fever-afebrile, cultures negative. If they remains negative, dc abx tomorrow A. fib with RVR-now control, sinus rhythm. Elevated troponin, non-STEMI, secondary to elevated heart rate. Patient recently diagnosed in February 2017, currently on aspirin. -CE x 3 negative -off Cardizem drip -Continue with Lopressor -Continue with aspirin -appreciate card input, defer to Dr. Benitez for OAC.HANH score 6. -occ. episode of atrial tach, depressed TSH noted, T4 pending Hyperlipidemia -Continue with statins Lovenox to 40 mg subcutaneous for DVT prophylaxis Protonix for GI prophylaxis PT evaluation, recommends SNF CM consult for SNF placement DC [employer] activity poss dc tomorrow after cardiology evaluates. D/W RN D/W Dr. Solomon D/W pt This patient was seen by myself and Dr. Solomon, this note is written on his behalf Problem Qualifiers (1) Altered mental status, unspecified: Qualified Codes: R41.0 - Disorientation, unspecified (2) Hyperlipidemia: Qualified Codes: E78.5 - Hyperlipidemia, unspecified Ritu Machuca May 30, 2017 12:05
--- NOTE | 2017-05-30 12:54 | PD.CARD.PN ---
Subjective Subjective Remarks The patient denies acute complaints. Had elevated BP and HR. She has short runs of atrial fibrillation vs AT with PACs (Eloise Jay) Objective Medications Current Medications Medications (Trade) Dose Ordered Sig/Frank Route Start Time Stop Time Status Last Admin Diltiazem HCl 125 mg/Sodium Chloride 125 ml @ 5 mls/hr TITRATE PRN IV 05/28/17 19:00 05/28/17 22:00 (NS Flush) 2 ml BID IV FLUSH 05/28/17 21:00 05/30/17 09:41 (NS Flush) 2 ml UNSCH PRN IVF 05/28/17 20:00 (Tylenol) 325 mg Q4H PRN PO 05/28/17 20:30 05/29/17 15:16 (Xanax) 0.25 mg BID PO 05/28/17 21:00 05/30/17 09:40 (Ecotrin Ec) 81 mg DAILY PO 05/29/17 09:00 05/30/17 09:41 (Milk Of Magnesia Liq) 30 ml DAILY PRN PO 05/28/17 20:30 (Ditropan) 5 mg BID PO 05/28/17 21:00 05/30/17 09:41 (Pravachol) 20 mg DAILY PO 05/29/17 09:00 05/30/17 09:41 (Lillie-Colace) 1 tab DAILY PO 05/29/17 09:00 05/30/17 09:41 (Metamucil Smooth Texture Sf/ Gf Pkt) 1 pkt DAILY PRN PO 05/28/17 21:00 Cefepime HCl 1000 mg/Sodium Chloride 100 ml @ 200 mls/hr Q8H IV 05/29/17 03:00 05/30/17 03:50 (Protonix) 40 mg DAILY PO 05/29/17 09:00 05/30/17 09:41 Sodium Chloride 1,000 ml @ 50 mls/hr Q20H IV 05/28/17 20:45 05/30/17 00:23 (Lovenox Inj) 40 mg Q24H SQ 05/29/17 10:00 05/30/17 09:42 (Catapres) 0.1 mg Q6H PRN PO 05/30/17 03:30 05/30/17 03:50 (Lopressor) 50 mg BID PO 05/30/17 09:00 05/30/17 09:41 Vital Signs / I&O Vital Signs Date Time Temp Pulse Resp B/P (MAP) Pulse Ox O2 Delivery O2 Flow Rate FiO2 05/30/17 11:00 97.8 82 16 94/67 (76) 98 05/30/17 07:10 98.9 102 16 130/72 (91) 97 05/30/17 06:13 92 05/30/17 05:06 96 05/30/17 04:00 95 05/30/17 03:40 98.6 96 175/104 (127) 98 161/107 (125) 05/30/17 03:00 99 05/30/17 02:00 92 05/30/17 01:00 90 05/30/17 00:28 98.4 85 149/91 (110) 85 05/30/17 00:00 86 05/29/17 23:00 89 05/29/17 22:00 82 05/29/17 21:00 90 05/29/17 20:00 98.3 100 129/96 (107) 97 05/29/17 20:00 98 05/29/17 19:00 106 05/29/17 18:00 108 05/29/17 17:00 96 05/29/17 16:00 100 05/29/17 15:00 98.7 81 18 134/82 (99) 98 05/29/17 15:00 93 05/29/17 14:00 88 05/29/17 13:00 88 I/O 05/29/17 05/29/17 05/29/17 05/30/17 05/30/17 05/30/17 07:00 15:00 23:00 07:00 15:00 23:00 Intake Total 240 ml 100 ml 480 ml 840 ml Output Total 550 ml 700 ml 1950 ml Balance -310 ml 100 ml -220 ml -1110 ml Intake Oral 240 ml 480 ml 240 ml IV Total 100 ml 600 ml Output Urine Total 550 ml 700 ml 1950 ml # Bowel Movements 1 Physical Exam GENERAL: Pleasant, elderly female, NAD SKIN: Warm and dry. HEAD: Normocephalic. EYES: No scleral icterus. No injection or drainage. NECK: Supple, trachea midline. . CARDIOVASCULAR: Regular rate and rhythm RESPIRATORY: Breath sounds equal bilaterally. No accessory muscle use. GASTROINTESTINAL: Abdomen soft, nondistended, global tenderness to moderate palpation MUSCULOSKELETAL: No cyanosis, or edema. BACK: Nontender without obvious deformity. Laboratory Laboratory Tests Test 05/29/17 14:13 White Blood Count 10.2 TH/MM3 Red Blood Count 3.57 MIL/MM3 Hemoglobin 9.8 GM/DL Hematocrit 30.7 % Mean Corpuscular Volume 86.0 FL Mean Corpuscular Hemoglobin 27.3 PG Mean Corpuscular Hemoglobin Concent 31.8 % Red Cell Distribution Width 14.6 % Platelet Count 317 TH/MM3 Mean Platelet Volume 6.9 FL Blood Urea Nitrogen 9 MG/DL Creatinine 0.55 MG/DL Random Glucose 126 MG/DL Calcium Level 7.8 MG/DL Magnesium Level 1.8 MG/DL Sodium Level 136 MEQ/L Potassium Level 3.6 MEQ/L Chloride Level 106 MEQ/L Carbon Dioxide Level 23.9 MEQ/L Anion Gap 6 MEQ/L Estimat Glomerular Filtration Rate 106 ML/MIN Troponin I 0.10 NG/ML Triglycerides Level 49 MG/DL Cholesterol Level 129 MG/DL LDL Cholesterol 64 MG/DL HDL Cholesterol 55.1 MG/DL Cholesterol/HDL Ratio 2.34 RATIO Thyroid Stimulating Hormone 3rd Gen 0.264 uIU/ML Imaging Last 72 hours Impressions Humerus X-Ray 05/29/17 0000 Signed Impressions: Service Date/Time: Monday, May 29, 2017 13:20 - CONCLUSION: Negative for fracture. Johnnie Cazares MD FACR Chest X-Ray 05/28/17 1749 Signed Impressions: Service Date/Time: Sunday, May 28, 2017 18:24 - CONCLUSION: Minimal parenchymal changes left base. Johnnie Cazares MD FACR Head CT 05/28/17 0000 Signed Impressions: Service Date/Time: Sunday, May 28, 2017 19:18 - CONCLUSION: Negative noncontrast CT Sharan Fiore MD (Eloise Jay) Assessment and Plan Assessment and Plan Atrial fibrillation with RVR exacerbated by SIRS. No identified source of infection. Xarelto discontinued by Dr. Benitez. She had a recent fall. Elevated troponin. Recent stress test 02/2017 HTN HLD Hx CVA Low TSH PLAN: Check T4 Agree with metoprolol Continue current therapy. Will hold off on anticoagulation for now. Dr Benitez will follow up tomorrow Follow up blood cultures. Patient seen and evaluated by Dr Tarango who completed face to face encounter, physical exam and participated in evaluation and management. (Eloise Jay) Assessment and Plan The exam, history, and the medical decision-making described in the above note were completed with the assistance of the mid-level provider. I reviewed and agree with the findings presented. I attest that I had a [id number] encounter with the patient on the same day, and personally performed and documented my assessment and findings in the medical record. Will continue on metoprolol for now (Sathish Tarango MD) Eloise Jay May 30, 2017 12:54 Sathish Tarango MD May 30, 2017 18:15
[2017-05-31] VITALS (28 sets, daily range): BP systolic 122–164; BP diastolic 80–108; PULSE 61–124; RESP 14–20; TEMP 98–98.9; O2SAT 93–98
[2017-05-31] MEDS: CEFEPIME INJ 1,000 MG in SODIUM CHLORIDE 0.9% INJ 100 ML IV SCH ×3 (03:50→18:16)
[2017-05-31] MEDS: ASPIRIN EC 81 MG TABEC PO SCH (08:43)
[2017-05-31] MEDS: METOPROLOL TARTRATE 50 MG TAB PO SCH ×2 (08:43→20:55)
[2017-05-31] MEDS: DOCUSATE SODIUM 50 MG/SENNA 8.6 MG TAB PO SCH (08:43)
[2017-05-31] MEDS: OXYBUTYNIN CHLORIDE 5 MG TAB PO SCH ×2 (08:43→20:55)
[2017-05-31] MEDS: ALPRAZolam 0.25 MG TAB PO SCH ×2 (08:43→20:55)
[2017-05-31] MEDS: PRAVASTATIN SOD 20 MG TAB PO SCH (08:43)
[2017-05-31] MEDS: PANTOPRAZOLE SOD 40 MG DELAYED RELEASE TAB PO SCH (08:43)
[2017-05-31] MEDS: SODIUM CHLORIDE 0.9% FLUSH 10 ML FLUSH IV FLUSH SCH ×2 (08:45→20:57)
[2017-05-31] MEDS: ENOXAPARIN SODIUM 40 MG/0.4 ML SYRINGE SQ SCH (10:22)
--- NOTE | 2017-05-31 12:55 | HHI.PR ---
Subjective Remarks Sitting up in bed eating lunch Awake, forgetful for recent events, this is probably her baseline Afebrile Regular rhythm now (Ruth Rodríguez) Objective Objective Results - Vital Signs Date Time Temp Pulse Resp B/P (MAP) Pulse Ox O2 Delivery O2 Flow Rate FiO2 05/31/17 12:00 94 05/31/17 07:45 98.2 83 20 122/80 (94) 98 05/31/17 06:11 91 05/31/17 05:00 81 05/31/17 04:05 98.7 61 151/99 (116) 98 05/31/17 04:00 80 05/31/17 03:00 75 05/31/17 02:00 86 05/31/17 01:00 92 05/31/17 00:37 98.0 101 152/108 (123) 94 05/31/17 00:00 94 05/30/17 23:00 96 05/30/17 22:00 86 05/30/17 21:00 92 05/30/17 20:00 92 05/30/17 20:00 98.2 93 133/90 (104) 98 05/30/17 19:00 101 05/30/17 18:00 88 05/30/17 17:48 98 21 05/30/17 17:00 78 05/30/17 16:00 90 05/30/17 15:00 88 05/30/17 15:00 97.7 88 16 138/85 (102) 94 05/30/17 14:00 86 05/30/17 13:00 82 I/O 05/30/17 05/30/17 05/30/17 05/31/17 05/31/17 05/31/17 07:00 15:00 23:00 07:00 15:00 23:00 Intake Total 840 ml 1798 ml 240 ml Output Total 1950 ml 1400 ml 600 ml Balance -1110 ml 398 ml -360 ml Intake Oral 240 ml 480 ml 240 ml IV Total 600 ml 1318 ml Output Urine Total 1950 ml 1400 ml 600 ml # Bowel Movements 1 (Ruth Rodríguez) Result Diagram: 05/29/17 1413 05/29/17 1413 ROS General: Weakness, Other (resolving limited ROS, denies any chest pain, no shortness of breath) (Ruth Rodríguez) Physical Exam Physical Exam PHYSICAL EXAMINATION GENERAL: This is an elderly female who appears to be in no acute distress. She is awake, HEAD: Normocephalic without any lesion or mass noted. Facial features appear symmetric. OROPHARYNGEAL: Oropharynx without erythema or edema. NECK: Supple. No nuchal rigidity or lymphadenopathy. Trachea midline without deviation. CARDIAC: Regular rhythm, regular rate, S1 and S2 are heard. LUNGS: Clear to auscultation bilaterally. No shortness of breath noted ABDOMEN: Soft, nontender, no organomegaly or masses. Bowel sounds are heard in all four quadrants. EXTREMITIES: no LE edema. NEUROLOGICAL: Patient mood and affect appropriate, no anxiety noted SKIN:Warm and dry (Ruth Rodríguez) A/P Assessment and Plan vital signs reviewed, afebrile, pulse now regular labs reviewed, leukocytosis resolved, 10.2, anemia mild 9.8, Febrile, tachycardia, SIRS, unclear source of infection. antibiotics, follow cultures-negative so far -Monitor CBC, monitor for fever-afebrile, cultures negative. Antibiotic DC'd A. fib with RVR-now control, sinus rhythm. Elevated troponin, non-STEMI, secondary to elevated heart rate. currently on aspirin. Stable heart rate with Lopressor and aspirin -appreciate card input, and plan a care Hyperlipidemia -Continue with statins Lovenox to 40 mg subcutaneous for DVT prophylaxis Protonix for GI prophylaxis PT evaluation, recommends SNF CM consult for SNF placement Bowel regimen, normal trends, states BM yesterday Discharge possible tomorrow D/W RN D/W Dr. Solomon, seen on her behalf D/W pt (Ruth Rodríguez) Assessment and Plan Patient seen and examined as above Labs reviewed Appreciate security sales consultant help Medications reviewed Continue current management Discussed with carnallite plant operator Dr. Lopes. Vascular him just aspirin 325 mg daily as patient has a recurrent fall and he stops Xarelto. discussed with patient Discussed with rifle case repairer about DC planning [facility]. She is getting authorization from insurance (Filippo Solomon MD) Ruth Rodríguez May 31, 2017 12:55 Filippo Solomon MD May 31, 2017 16:37
[2017-05-31] MEDS ORDERED: DILTIAZEM 125 MG/NS 100 ML IV PRN ×2 (18:45)
[2017-05-31] MEDS ORDERED: DILTIAZEM HCL 25 MG/5 ML (Bolus) IV PUSH ONE (19:00)
[2017-06-01] VITALS (28 sets, daily range): BP systolic 118–150; BP diastolic 79–93; PULSE 69–96; RESP 14–18; TEMP 97.7–98.5; O2SAT 94–99
[2017-06-01] MEDS: ALPRAZolam 0.25 MG TAB PO SCH ×2 (08:01→21:06)
[2017-06-01] MEDS: ASPIRIN EC 325 MG TABEC PO SCH (08:01)
[2017-06-01] MEDS: PANTOPRAZOLE SOD 40 MG DELAYED RELEASE TAB PO SCH (08:01)
[2017-06-01] MEDS: ACETAMINOPHEN 325 MG TAB PO PRN ×2 (08:01→14:13)
[2017-06-01] MEDS: DOCUSATE SODIUM 50 MG/SENNA 8.6 MG TAB PO SCH (08:01)
[2017-06-01] MEDS: PRAVASTATIN SOD 20 MG TAB PO SCH (08:01)
[2017-06-01] MEDS: OXYBUTYNIN CHLORIDE 5 MG TAB PO SCH ×2 (08:02→21:06)
[2017-06-01] MEDS: SODIUM CHLORIDE 0.9% FLUSH 10 ML FLUSH IV FLUSH SCH ×2 (08:02→21:06)
[2017-06-01] MEDS: METOPROLOL TARTRATE 50 MG TAB PO SCH (08:02)
[2017-06-01] MEDS: ENOXAPARIN SODIUM 40 MG/0.4 ML SYRINGE SQ SCH (11:26)
--- NOTE | 2017-06-01 14:38 | HHI.PR ---
Subjective Remarks Sitting up in bed, appetite fair Pleasant confusion, but this probably her norm Afebrile Working with physical therapy for mobility and strengthening (Ruth Rodríguez) Objective Objective Results - Vital Signs Date Time Temp Pulse Resp B/P (MAP) Pulse Ox O2 Delivery O2 Flow Rate FiO2 06/01/17 14:00 84 06/01/17 13:08 79 06/01/17 12:06 72 06/01/17 11:30 98.4 70 16 132/84 (100) 96 06/01/17 11:04 80 06/01/17 10:01 69 06/01/17 09:00 74 06/01/17 08:00 98.1 85 16 120/82 (95) 97 06/01/17 08:00 85 06/01/17 07:00 80 06/01/17 06:00 96 06/01/17 05:00 75 06/01/17 04:00 75 06/01/17 03:00 79 06/01/17 03:00 83 146/79 06/01/17 03:00 98.3 83 14 146/79 (101) 96 06/01/17 02:00 84 06/01/17 01:00 84 06/01/17 00:00 84 06/01/17 00:00 86 114/77 05/31/17 23:00 89 05/31/17 23:00 98.0 89 14 135/89 (104) 05/31/17 23:00 99 135/89 05/31/17 22:24 98 164/87 05/31/17 22:00 90 05/31/17 21:00 100 05/31/17 20:00 99 05/31/17 20:00 102 05/31/17 20:00 98.7 103 16 164/82 (109) 96 05/31/17 19:00 116 05/31/17 18:07 94 21 05/31/17 18:00 124 05/31/17 17:00 102 05/31/17 16:00 94 05/31/17 15:00 98 05/31/17 15:00 99 16 138/96 (110) 98 I/O 05/31/17 05/31/17 05/31/17 06/01/17 06/01/17 06/01/17 07:00 15:00 23:00 07:00 15:00 23:00 Intake Total 240 ml 720 ml 515 ml Output Total 600 ml 320 ml 500 ml Balance -360 ml 400 ml 15 ml Intake Oral 240 ml 720 ml 480 ml IV Total 35 ml Output Urine Total 600 ml 320 ml 500 ml # Bowel Movements 1 (Ruth Rodríguez) Result Diagram: 05/29/17 1413 05/29/17 1413 ROS General: Fatigue, Weakness, Other (10 point ROS done positives noted) (Ruth Rodríguez) Physical Exam Physical Exam PHYSICAL EXAMINATION GENERAL: This is a frail, elderly female who appears to be in no acute distress. She is awake HEAD: Normocephalic without any lesion or mass noted. Facial features appear symmetric. OROPHARYNGEAL: Oropharynx without erythema or edema. NECK: Supple. No nuchal rigidity or lymphadenopathy. Trachea midline without deviation. CARDIAC: Regular rhythm, regular rate, S1 and S2 are heard. LUNGS: Mild diminished to auscultation bilaterally. No active wheeze, or rhonchi ABDOMEN: Soft, nontender, no organomegaly or masses. Bowel sounds soft EXTREMITIES: no edema. Moves with purpose NEUROLOGICAL: Patient mood and affect calm SKIN:Warm and dry (Ruth Rodríguez) A/P Assessment and Plan vital signs reviewed, afebrile, noted irregular tachycardic heart rate around 1800 last p.m., placed back on IV Cardizem, converted to sinus rhythm briefly after IV started. Now sinus rhythm regular in the 70s labs reviewed, leukocytosis resolved, anemia probable chronic disease, T4 6.9 Febrile, tachycardia, SIRS, unclear source of infection. antibiotics, follow cultures-negative so far -Monitor CBC, monitor for fever-afebrile, cultures negative. A. fib with RVR-again seen briefly around 1800 last p.m., now sinus rhythm, currently on low-dose IV Cardizem Will have cardiology reevaluate rhythm and Cardizem dose today, appreciate input Elevated troponin, non-STEMI, secondary to elevated heart rate. Continue ASA for her anticoagulation, Hyperlipidemia -Continue with statins Lovenox to 40 mg subcutaneous for DVT prophylaxis Protonix for GI prophylaxis PT eval and treat , discharge planning recommendations for rehabilitation continued at subacute level CM consult for SNF placement Bowel regimen, BM within the past 48 hours Discharge possible pending D/W RN D/W Dr. Solomon, seen on her behalf D/W pt (Ruth Rodríguez) Assessment and Plan Patient seen and examined as above Discussed with RN Plan of care discussed with POISING INSPECTOR Appreciate cardiology input Plan of care discussed with POISING INSPECTOR Discussed with patient On IV Cardizem went to be switched to by mouth Cardizem now in sinus rhythm (Filippo Solomon MD) Ruth Rodríguez Jun 01, 2017 14:37 Filippo Solomon MD Jun 01, 2017 16:21
--- NOTE | 2017-06-01 15:47 | PD.CARD.PN ---
Objective Vital Signs / I&O Vital Signs Date Time Temp Pulse Resp B/P (MAP) Pulse Ox O2 Delivery O2 Flow Rate FiO2 06/01/17 14:00 84 06/01/17 13:08 79 06/01/17 12:06 72 06/01/17 11:30 98.4 70 16 132/84 (100) 96 06/01/17 11:04 80 06/01/17 10:01 69 06/01/17 09:00 74 06/01/17 08:00 98.1 85 16 120/82 (95) 97 06/01/17 08:00 85 06/01/17 07:00 80 06/01/17 06:00 96 06/01/17 05:00 75 06/01/17 04:00 75 06/01/17 03:00 79 06/01/17 03:00 83 146/79 06/01/17 03:00 98.3 83 14 146/79 (101) 96 06/01/17 02:00 84 06/01/17 01:00 84 06/01/17 00:00 84 06/01/17 00:00 86 114/77 05/31/17 23:00 89 05/31/17 23:00 98.0 89 14 135/89 (104) 05/31/17 23:00 99 135/89 05/31/17 22:24 98 164/87 05/31/17 22:00 90 05/31/17 21:00 100 05/31/17 20:00 99 05/31/17 20:00 102 05/31/17 20:00 98.7 103 16 164/82 (109) 96 05/31/17 19:00 116 05/31/17 18:07 94 21 05/31/17 18:00 124 05/31/17 17:00 102 05/31/17 16:00 94 I/O 05/31/17 05/31/17 05/31/17 06/01/17 06/01/17 06/01/17 07:00 15:00 23:00 07:00 15:00 23:00 Intake Total 240 ml 720 ml 515 ml Output Total 600 ml 320 ml 500 ml Balance -360 ml 400 ml 15 ml Intake Oral 240 ml 720 ml 480 ml IV Total 35 ml Output Urine Total 600 ml 320 ml 500 ml # Bowel Movements 1 Assessment and Plan Assessment and Plan 82 Y/O F ADMITTED C FALL AND AF RVR SHE HAS HX PAF AND MULTIPLE FALLS NO SYNCOPE NO CP OR SOB SHE HAS CONVERTED TO NSR V BS JVP NL RRR NO GALLOP 1/6 GIOVANNY NO EDEMA TSH IS LOW WILL MADDOX LOPRESSOR T DILTIAZEM CK FREE HORMONES ADD AMIODARONE 200 BID WOULD USE ASA NO ANTICOAGULANTS 2 FREQUENT FALLS Willian Benitez DO Jun 01, 2017 15:47
[2017-06-01] MEDS ORDERED: DIGOXIN 0.125 MG TAB PO ONE (16:30)
[2017-06-01] MEDS: DILTIAZEM HCL 60 MG TAB PO SCH ×2 (18:06→21:06)
[2017-06-02] VITALS (21 sets, daily range): BP systolic 108–139; BP diastolic 64–82; PULSE 73–106; RESP 16–20; TEMP 97.4–98.2; O2SAT 96–98
[2017-06-02] MEDS: ACETAMINOPHEN 325 MG TAB PO PRN (04:40)
[2017-06-02] MEDS ORDERED: DIGOXIN 0.125 MG TAB PO SCH (09:00)
[2017-06-02] MEDS: PANTOPRAZOLE SOD 40 MG DELAYED RELEASE TAB PO SCH (09:28)
[2017-06-02] MEDS: PRAVASTATIN SOD 20 MG TAB PO SCH (09:28)
[2017-06-02] MEDS: DILTIAZEM HCL 60 MG TAB PO SCH ×2 (09:28→13:12)
[2017-06-02] MEDS: ASPIRIN EC 325 MG TABEC PO SCH (09:28)
[2017-06-02] MEDS: OXYBUTYNIN CHLORIDE 5 MG TAB PO SCH (09:28)
[2017-06-02] MEDS: ALPRAZolam 0.25 MG TAB PO SCH (09:28)
[2017-06-02] MEDS: DOCUSATE SODIUM 50 MG/SENNA 8.6 MG TAB PO SCH (09:28)
[2017-06-02] MEDS: ENOXAPARIN SODIUM 40 MG/0.4 ML SYRINGE SQ SCH (09:29)
[2017-06-02] MEDS: SODIUM CHLORIDE 0.9% FLUSH 10 ML FLUSH IV FLUSH SCH (09:29)
[2017-06-02] MEDS ORDERED: AMIODARONE 200 MG TAB PO SCH (13:00)
--- NOTE | 2017-06-02 13:04 | HHI.PR ---
Subjective Remarks awake, oriented x 2, forgetful at times no focal deficits dry cough no fever tele reviewed, occ episodes of atrial tach, currently SR 80s BP 100s (Ritu Machuca) Objective Objective Results - Vital Signs Date Time Temp Pulse Resp B/P (MAP) Pulse Ox O2 Delivery O2 Flow Rate FiO2 06/02/17 12:04 80 06/02/17 11:03 85 06/02/17 11:00 97.4 90 20 137/64 (88) 96 06/02/17 10:00 97 06/02/17 09:00 96 06/02/17 08:00 93 06/02/17 07:42 98.2 82 18 120/80 (93) 96 06/02/17 07:10 87 06/02/17 06:00 85 06/02/17 05:00 73 06/02/17 04:00 96 06/02/17 03:15 98.1 87 16 139/82 (101) 98 06/02/17 03:00 80 06/02/17 02:00 84 06/02/17 01:00 87 06/02/17 00:00 88 06/01/17 23:30 97.7 94 16 150/90 (110) 99 06/01/17 23:00 88 06/01/17 22:00 88 06/01/17 21:00 88 06/01/17 20:30 98.0 95 16 140/93 (109) 98 06/01/17 20:00 80 06/01/17 19:00 84 06/01/17 18:13 88 06/01/17 17:00 89 06/01/17 16:00 85 06/01/17 15:05 85 06/01/17 15:00 98.5 81 18 118/86 (97) 94 06/01/17 14:00 84 06/01/17 13:08 79 I/O 06/01/17 06/01/17 06/01/17 06/02/17 06/02/17 06/02/17 07:00 15:00 23:00 07:00 15:00 23:00 Intake Total 515 ml 770 ml 480 ml Output Total 500 ml 1100 ml 700 ml Balance 15 ml -330 ml -220 ml Intake Oral 480 ml 720 ml 480 ml IV Total 35 ml 50 ml Output Urine Total 500 ml 1100 ml 700 ml # Bowel Movements 0 0 (Ritu Machuca) Result Diagram: 05/29/17 1413 05/29/17 1413 Imaging Last Impressions Chest X-Ray 05/28/17 1749 Signed Impressions: Service Date/Time: Sunday, May 28, 2017 18:24 - CONCLUSION: Minimal parenchymal changes left base. Johnnie Cazares MD FACR Head CT 05/28/17 0000 Signed Impressions: Service Date/Time: Sunday, May 28, 2017 19:18 - CONCLUSION: Negative noncontrast CT Sharan Fiore MD Other Results Date/Time Source Procedure Growth Status 05/28/17 18:08 Blood Peripheral Aerobic Blood Culture - Final NO GROWTH IN 5 DAYS Complete 05/28/17 18:08 Blood Peripheral Anaerobic Blood Culture - Final NO GROWTH IN 5 DAYS Complete (Ritu Machuca) Physical Exam Physical Exam GENERAL: This is a well-nourished, well-developed patient, in no apparent distress. SKIN: No rashes, ecchymoses or lesions. Cool and dry. HEAD: Atraumatic. Normocephalic. No temporal or scalp tenderness. EYES: Pupils equal round and reactive. Extraocular motions intact. No scleral icterus. No injection or drainage. ENT: Nose without bleeding, purulent drainage or septal hematoma. Throat without erythema, tonsillar hypertrophy or exudate. Uvula midline. Airway patent. NECK: Trachea midline. No JVD or lymphadenopathy. Supple, nontender, no meningeal signs. CARDIOVASCULAR: Regular rate and rhythm without murmurs, gallops, or rubs. RESPIRATORY: Clear to auscultation. Breath sounds equal bilaterally. No wheezes , rales, or rhonchi. GASTROINTESTINAL: Abdomen soft, non-tender, nondistended. No hepato-splenomegaly , or palpable masses. No guarding. MUSCULOSKELETAL: Extremities without clubbing, cyanosis, or edema. No joint tenderness, effusion, or edema noted. No calf tenderness. Negative Homans sign bilaterally. NEUROLOGICAL: Awake, alert oriented 2-3. No focal deficits, speech is clear. Very pleasant. No focal deficits. Poor historian. (Ritu Machuca) A/P Diagnosis: (1) Altered mental status, unspecified ICD Codes: R41.82 - Altered mental status, unspecified Status: Acute (2) SIRS (systemic inflammatory response syndrome) ICD Codes: R65.10 - Systemic inflammatory response syndrome (SIRS) of non- infectious origin without acute organ dysfunction Status: Acute (3) Atrial fibrillation with RVR ICD Codes: I48.91 - Unspecified atrial fibrillation Status: Acute (4) Elevated troponin I level ICD Codes: R74.8 - Abnormal levels of other serum enzymes Status: Acute (5) Hyperlipidemia ICD Codes: E78.5 - Hyperlipidemia, unspecified Status: Chronic Assessment and Plan 82-year-old elderly white female who was brought in from a local assisted- living facility with altered mental status, found febrile with A. fib with RVR. Febrile, tachycardia, SIRS, unclear source of infection. Possibly pulmonary, chest x-ray with minimal parenchymal changes to the left base. -Continue with antibiotics, cultures remained negative -Off antibiotics, afebrile. A. fib with RVR-now control, sinus rhythm. Elevated troponin, non-STEMI, secondary to elevated heart rate. Patient recently diagnosed in February 2017, currently on aspirin. -CE x 3 negative -Continue with aspirin 325 mg by mouth daily -appreciate card input, Dr. Benitez recommended no anticoagulation due to history of falls, risk of injury possible bleed. Continue with aspirin -Appreciate cardiology input, heart rate better controlled. Off Cardizem drip. Continue Cardizem and digoxin. Card added Amiodarone,200 mg by mouth daily- to start today -Remain sinus rhythm, no episodes of atrial tachycardia. Stable for discharge from cardiology standpoint. Hyperlipidemia -Continue with statins Lovenox to 40 mg subcutaneous for DVT prophylaxis Protonix for GI prophylaxis PT evaluation, recommends SNF CM consult for SNF placement-going to [facility] Patient stable, afebrile, remained sinus rhythm. Heart rate is well-controlled. Discharged to SNF Follow up with cardiology Follow-up with PCP Diet heart healthy Activity as tolerated Fall precautions D/W RN D/W Dr. Solomon D/W pt D/W CM This patient was seen by myself and Dr. Solomon, this note is written on his behalf (Ritu Machuca) Assessment and Plan pt seen and examined as above with rn at bedside plan of care [facility] meds reviewed dc planning to SNF (Filippo Solomon MD) Problem Qualifiers (1) Altered mental status, unspecified: Qualified Codes: R41.0 - Disorientation, unspecified (2) Hyperlipidemia: Qualified Codes: E78.5 - Hyperlipidemia, unspecified Ritu Machuca Jun 02, 2017 13:04 Filippo Solomon MD Jun 02, 2017 15:08
[2017-06-02] MEDS ORDERED: ASPI325T33 PO (13:08)
[2017-06-02] MEDS ORDERED: AMIO200T PO (13:08)
[2017-06-02] MEDS ORDERED: MAGO400T2 OROPHARYNG (13:08)
[2017-06-02] MEDS ORDERED: DIGO0.12 PO (13:08)
--- NOTE | 2017-06-02 13:08 | HHI.DCPOC ---
Discharge Care Plan Diagnosis: (1) SIRS (systemic inflammatory response syndrome) (2) Atrial fibrillation with RVR (3) Altered mental status, unspecified (4) Elevated troponin I level (5) Hyperlipidemia Your Health Problems Are: Difficulty with ADL Chest Pain Goals to Promote Your Health * To prevent worsening of your condition and complications * To maintain your health at the optimal level Directions to Meet Your Goals Take your medications as prescribed Follow your dietary instruction Follow activity as directed Keep your appointments as scheduled Take your immunizations and boosters as scheduled If your symptoms worsen call your PCP, if no PCP go to Urgent Care Center or Emergency Room Smoking is Dangerous to Your Health. Avoid second hand smoke Call the 24-hour hour crisis hotline for domestic abuse at Ritu Machuca Jun 02, 2017 13:08
[2017-06-02] MEDS ORDERED: DILT60TA33 PO (13:11)
[2017-06-02] MEDS ORDERED: MAGNESIUM OXIDE 400 MG TAB PO SCH (14:00)
[2017-06-02 17:24] LABS: FREE T3 2.1 PG/ML (2.18-3.98); FREE T4 1.23 NG/DL (0.76-1.46)
--- NOTE | 2017-06-03 18:47 | HHI.DS ---
Discharge Summary Admission Date May 28, 2017 at 19:51 Admitting Diagnosis AMS; sepsis; elevated troponin I; afrvr (1) Altered mental status, unspecified ICD Codes: R41.82 - Altered mental status, unspecified Status: Acute (2) SIRS (systemic inflammatory response syndrome) ICD Codes: R65.10 - Systemic inflammatory response syndrome (SIRS) of non- infectious origin without acute organ dysfunction Status: Acute (3) Atrial fibrillation with RVR ICD Codes: I48.91 - Unspecified atrial fibrillation Status: Acute (4) Elevated troponin I level ICD Codes: R74.8 - Abnormal levels of other serum enzymes Status: Acute (5) Hyperlipidemia ICD Codes: E78.5 - Hyperlipidemia, unspecified Status: Chronic Significant Findings Laboratory Tests Test 06/02/17 16:10 Free Triiodothyronine (T3) pg/dL 2.10 PG/ML (2.18-3.98) Imaging Last Impressions Humerus X-Ray 05/29/17 0000 Signed Impressions: Service Date/Time: Monday, May 29, 2017 13:20 - CONCLUSION: Negative for fracture. Johnnie Cazares MD FACR Chest X-Ray 05/28/17 1749 Signed Impressions: Service Date/Time: Sunday, May 28, 2017 18:24 - CONCLUSION: Minimal parenchymal changes left base. Johnnie Cazares MD FACR Head CT 05/28/17 0000 Signed Impressions: Service Date/Time: Sunday, May 28, 2017 19:18 - CONCLUSION: Negative noncontrast CT Sharan Fiore MD Hospital Course This a pleasant 82-year-old elderly white female from a local assisted living facility, significant past medical history of atrial fibrillation, hyperlipidemia, depression, hypertension, CVA. Patient was pretty and from [facility] for altered mental status. Apparently the patient went down for nap and after she woke up she was noted confused with nonsensical speech. Heart rate was noted in the 190s. She was found with a fever 101.3. EVAC gave her fluids and One-time dose of Cardizem. Her heart rate came down to 170s. Patient's baseline is usually alert and oriented 3 with occasional forgetfulness. She is typically ambulatory and can take care of her own needs. During emergency room evaluation, laboratory workup was completed. CBC remarkable for mild leukocytosis, WBC 11.1. BMP unremarkable. Lactic acid 1.7. Troponin 0.19. Urinalysis did not reveal any infection. Chest x-ray with minimal parenchymal changes to the left base. CT of the head negative. Blood cultures were obtained and patient was fluid resuscitated and started on antibiotics. She was started on a Cardizem drip. Her heart rate changed to 80 sinus rhythm. Patient was awake alert she knows she is in the hospital but doesn't fully understand why she was brought in. Indicates that prior to this she was doing well. She denied any chest pain, no shortness of breath, no palpitations. She wanted to get up and ambulate. Hospitalist spoke to on the phone with the patient's daughter in [place] as well as a local friend who is in charge of taking her to her medical appointments. Patient was recently admitted to [facility] on March 04, 2017 after a fall, she was noted to be in A. fib with RVR. She was also found positive for UTI and had elevated troponin consistent with non-STEMI. She was evaluated by Dr. Willian Benitez who did a STT that was negative. Echo was done showing EF of 55% with normal left ventricular function. She was started on Lopressor. At that time she was recommended to start on Xarelto as she had a HANH score 4. When she followed up with Dr. Benitez he stopped the Xarelto and put her back on baby aspirin. Her friend endorsed that she found out that the patient fell on Tuesday but the patient was not taken to the hospital. She had not noticed any recent fever or chills. Patient was admitted for further evaluation and treatment. During the course of the hospitalization, the following took place: 82-year-old elderly white female who was brought in from a local assisted- living facility with altered mental status, found febrile with A. fib with RVR. Febrile, tachycardia, SIRS, unclear source of infection. Possibly pulmonary, chest x-ray with minimal parenchymal changes to the left base. -Continued with antibiotics, cultures remained negative -was eventually taken off abx, no fever, mentation improved. Cultures remained negative. Complaining of right arm pain, from recent fall Had imaging studies, negative for fracture. Was found with A. fib with RVR- Elevated troponin, non-STEMI, secondary to elevated heart rate. Patient recently diagnosed in February 2017, currently on aspirin. -CE x 3 done, negative -cardiology consulted. -Continued aspirin 325 mg by mouth daily -appreciated card input, Dr. Benitez recommended no anticoagulation due to history of falls, risk of injury possible bleed. Continued with aspirin -HR improved. Was taken off Cardizem gtt. Started on Dig. Card. Amiodarone,200 mg by mouth daily. Pt. tolerated well -Remain sinus rhythm, no episodes of atrial tachycardia. Stable for discharge from cardiology standpoint. Hyperlipidemia -Continued with statins Put on Lovenox to 40 mg subcutaneous for DVT prophylaxis and Protonix for GI prophylaxis PT evaluation done, recommended SNF CM consult for SNF placement-accepted at [facility] Patient stable, afebrile, remained sinus rhythm. Heart rate is well-controlled. Discharged to SNF in stable condition. Instructed to: Follow up with cardiology Follow-up with PCP Diet heart healthy Activity as tolerated Fall precautions Pt Condition on Discharge: Stable Discharge Disposition: Discharge to SNF Discharge Instructions DIET: Follow Instructions for: Heart Healthy Diet Activities you can perform: Weight Bearing as Jules Other Activity Instructions: FALL PRECAUTIONS Follow up Referrals: Cardiology with Willian Benitez DO PCP Follow-up New Medications: Amiodarone (Amiodarone) 200 Mg Tab 200 MG PO DAILY for Regulate Heart Beat, #30 TAB 0 Refills Magnesium Oxide (Magox 400) 400 Mg Tablet 400 TAB OROPHARYNG DAILYAC for ELECTROLYTE REPLACEMENT for 30 Days, #[address] (Aspirin EC) 325 Mg Tabdr 325 MG PO DAILY for Stroke Prevention, #30 TAB Digoxin (Digoxin) 0.125 Mg Tab 0.125 MG PO DAILY for tachycardia for 30 Days, #30 TAB Diltiazem (Cardizem) 60 Mg Tab 60 MG PO QID for TACHYCARDIA for 30 Days, #120 TAB Continued Medications: Acetaminophen (Tylenol) 325 Mg Tab 325 MG PO Q4H PRN for PAIN, TAB 0 Refills Acetaminophen/Diphenhydramine (Acetaminophen Pm Caplet) 500 Mg-25 Mg Tablet 1 CAPLET PO HS Alprazolam (Xanax) 0.25 Mg Tab 0.25 MG PO BID, TAB 0 Refills Cholecalciferol (Vitamin D3) 1,000 Unit Cap 1000 UNITS PO DAILY for Nutritional Supplement, #1 BOTTLE 0 Refills Magnesium Hydroxide Liq (Milk of Magnesia Liq) 400 Mg/5 Ml Susp 30 ML PO DAILY PRN for CONSTIPATION, #1 BOTTLE 0 Refills [place]-3 Fatty Acids ([place]-3 Fish Oil 1000 mg) 300 Mg-1,000 Mg Cap 1 CAP PO DAILY for Nutritional Supplement Omeprazole Magnesium (Prilosec) 20 Mg Tab 20 MG PO DAILY Oxybutynin (Ditropan) 5 Mg Tab 5 MG PO BID for Urinary Symptom Managemen, #60 TAB 0 Refills Polyethylene Glycol 3350 Powder (Miralax Powder) 17 Gm Powd 17 GM PO DAILY PRN for CONSTIPATION, #1 CAN 0 Refills Mix and dissolve one measuring capful (17 grams) in 4oz. liquid of choice Pravastatin (Pravachol) 20 Mg Tab 20 MG PO DAILY for Cholesterol Management, #60 TAB 0 Refills Psyllium Powder (Metamucil Original Texture) 3.4 Gram/7 Gram Pow 1 SCOOP PO DAILY PRN for CONSTIPATION, CONTAINER 0 Refills Dissolve 1 scoopful in 8oz of water Sennosides-Docusate Sodium (Lillie-Colace) 8.6-50 Mg Tab 1 TAB PO DAILY for Constipation, #60 TAB 0 Refills Discontinued Medications: Aspirin DR (Aspirin Adult Low Strength) 81 Mg Tabdr 81 MG PO DAILY, TAB Metoprolol Tartrate (Metoprolol Tartrate) 25 Mg Tab 25 MG PO BID, #60 TAB 0 Refills Ritu Machuca Jun 03, 2017 18:46
== END 2017-06-02 17:10 | DRG 948 ==
LOC: NEPC 17:42 → NEDA 19:51 → HCIN 05-29 00:50
PROVIDERS: ADMIT Specialist; ATTEND Specialist
DX: R41.82 Altered mental status, unspecified (principal); R65.10 Systemic inflammatory response syndrome (SIRS) of non-infectious origin without acute organ dysfunction; I48.0 Paroxysmal atrial fibrillation; F32.9 Major depressive disorder, single episode, unspecified; I10 Essential (primary) hypertension; D63.8 Anemia in other chronic diseases classified elsewhere; S50.01XA Contusion of right elbow, initial encounter; E78.5 Hyperlipidemia, unspecified; M19.90 Unspecified osteoarthritis, unspecified site; Z79.82 Long term (current) use of aspirin; K59.00 Constipation, unspecified; Z86.73 Personal history of transient ischemic attack (TIA), and cerebral infarction without residual deficits; I25.2 Old myocardial infarction; R74.8 Abnormal levels of other serum enzymes; R29.6 Repeated falls; W19.XXXA Unspecified fall, initial encounter
CPT/HCPCS: 51702; 70450; 71010; 73060; 76937; 80048; 80053; 80061; 81001; 83605; 83690; 83735; 84436; 84439; 84443; 84481; 84484; 85025; 85027; 87040; 93005; 96361; 96365; 96374; J0171; J0461; J0692; J1650; J3370; J7030; J7050